=== PATIENT | male | born 1950 | race Caucasian/White ===

== ENCOUNTER 2020-03-15 08:45 | Outpatient (REF) | payer MEDICARE, SELFPAY | END 2020-03-15 08:46 | disposition home or self-care (01) | LOC: HO.CT 08:45 | PROVIDERS: PCP Internal Medicine; Visit Provider Surgery | DX: Z87.891 Personal history of nicotine dependence (principal) ==

== ENCOUNTER 2020-03-15 10:10 | Day surgery (SDC) | payer MEDICARE, SELFPAY ==
[2020-03-10 14:10] VITALS: BMI 23.6
[2020-03-15 10:05] VITALS: BP 150/91; PULSE 81; RESP 16; TEMP 36.1; O2SAT 97; BMI 23.6
[2020-03-15] MEDS: Lactated Ringers 1,000 ML 50 ML IVCONT (10:05)
[2020-03-15] MEDS: Sodium Phosphate,Mono-Dibasic 133 ML ENEMA PR (10:10)
--- NOTE | 2020-03-15 10:38 | MHC.SHP ---
Pre-Procedural Eval Section A The patient is an INPATIENT: No Changes since office visit: No Cold of Flu in the past 2 weeks, No New Medical Problems, No Changes in Medication and No Patient answered all questions The History & Physical has been completed within 30 days and I have reviewed it.: Yes Section B Chief Complaint: Screening Allergies: Allergies Allergy/AdvReac Type Severity Reaction Status Date / Time No Known Allergies Allergy Verified 03/15/20 09:57 [No Known Allergies*] Plan Patient has been examined and remains a candidate for the planned procedure
--- NOTE | 2020-03-15 10:42 | P.CONAN_ITS ---
[facility] Past Medical History Medical History Anxiety and depression Back pain COPD (chronic obstructive pulmonary disease) Elevated cholesterol History of hearing loss History of visual impairment HTN (hypertension) Neck pain Pulmonary nodule Smoker TIA (transient ischemic attack) Surgical History Surgical History H/O bilateral inguinal hernia repair History of cervical discectomy Hx of bilateral cataract extraction Hx of colonoscopy Social History Social History Alcohol intake: current Alcohol intake frequency: holidays/special occasions only Smoking Status: Current every day smoker Packs Per Day: 0.5 Cigarettes Per Day: 10.0 Years Smoked: 59 Smoked in Last 30 Days: Yes Patient Given Instructions on How to Stop Smoking: Yes Date Education Initiated: 03/10/20 Use of substances other than those prescribed or required for medical reasons: No Advance Directives: No Advance Directives Information Provided: No Advance Directives on File: No Meds Allergies Allergy/AdvReac Type Severity Reaction Status Date / Time No Known Allergies Allergy Verified 03/15/20 09:57 [No Known Allergies*] Home Medications Medication Instructions Recorded Confirmed Type amlodipine 1 tab PO DAILY 03/10/20 03/10/20 History aspirin [Aspir-81] 81 mg PO DAILY 03/10/20 03/10/20 History atorvastatin 1 tab PO BEDTIME 03/10/20 03/10/20 History omega-3 fatty acids [Fish Oil] 1,000 mg PO DAILY 03/10/20 03/10/20 History tiotropium bromide [Spiriva 2 puff PO DAILY 03/10/20 03/10/20 History Respimat] Exam Exam Date and Time: March 15, 2020 1042 Height,Weight and Vital Signs: Height 5 ft 8 in Weight 70.45 kg Last Vital Signs Temp 97 F 03/15/20 10:05 Pulse 81 03/15/20 10:05 Resp 16 03/15/20 10:05 BP 150/91 H 03/15/20 10:05 Pulse Ox 97 03/15/20 10:05 Airway Mallampati Class: II TM Dist: >3cm Neck ROM: Full Loose/Missing/Broken Teeth: No Heart: rrr+[id number] Lungs: cta b/l Assessment and Plan Assessment Anesthesia Assessment: Anesthesia Plan Discussed and Chart Reviewed Final Anesthetic Review NPO: Yes ASA Class: II Final Preanesthetic Review: No Changes in Pt Med Stat, Meds/Allgs Chart Reviewed, Consent Obtained/Reviewed and Anes Risks/Benef Reviewed Patient Risk: Low Procedure Risk: Low Assessment/Block/Sedation in SS: Assess/Block/Sedation-SS Anesthetic Plan Anesthetic Plan: MAC: Disposition: Standard PACU
[2020-03-15 11:10] VITALS: BP 108/68; PULSE 81; RESP 16; TEMP 36.2; O2SAT 95
--- NOTE | 2020-03-15 11:19 | PM.OP ---
Brief Operative Note Date of Service: 03/15/20 Pre-op diagnosis: screening Post-op diagnosis: same (colon polyp) Procedure: colonoscopy Surgeon: Daniel Dawson Anesthesia: MAC Estimated blood loss (mL): 0 Pathology: other (polyp 60 cm) Condition: stable Disposition: PACU
[2020-03-15 11:25] VITALS: BP 131/79; PULSE 86; RESP 18; TEMP 36.2; O2SAT 97
--- NOTE | 2020-03-15 11:30 | OP_ITS ---
SURGEON: Daniel Dawson MD INDICATIONS: Colon cancer screening and prior history of adenomatous colon polyps. PREOPERATIVE DIAGNOSIS: POSTOPERATIVE DIAGNOSIS: PROCEDURE PERFORMED: Colonoscopy to the cecum with snare polypectomy. ESTIMATED BLOOD LOSS: COMPLICATIONS: ANESTHESIA: ASSISTANTS: SPECIMENS: MEDICATIONS: Monitored anesthesia care. DESCRIPTION OF PROCEDURE: History and physical performed. The risks and benefits of the procedure were explained to the patient. Informed consent was obtained. The patient was placed in left lateral decubitus position. A digital rectal exam was performed and was found to be normal. The Olympus pediatric video colonoscope was introduced into the rectum and advanced to the cecum without difficulty. The cecum was identified by transillumination, palpation, and identification of ileocecal valve. Examination was performed and the scope was removed. He tolerated the procedure well and was taken to recovery area in stable condition. FINDINGS: The terminal ileum was not examined. There was a moderate amount of stool in the right colon and transverse colon. This was washed and suctioned as best possible. The cecum also had some stool and that was washed and suctioned. A single polyp at 60 cm measuring approximately 7 mm was removed with a snare and recovered via suction. No other polyps were identified. There was mild sigmoid diverticulosis. Retroflexed examination showed internal hemorrhoids. IMPRESSION: Colon polyp. RECOMMENDATION: Follow up the biopsy results. MD MONA Smith/LAURA / [id number]
--- NOTE | 2020-03-15 13:13 | HO.POSTANES ---
Post Anesthesia Evaluation Post Anesthesia Evaluation Vital Signs: Vital Signs Temp Pulse Resp BP Pulse Ox 03/15/20 11:25 97.1 F 86 18 131/79 97 03/15/20 11:10 97.1 F 81 16 108/68 95 03/15/20 10:05 97 F 81 16 150/91 H 97 Anesthesia: Monitored Mental Status: Awake Pain Control: Satisfactory Nausea/Vomiting: None Hydration: Adequate Anesthesia-Related Issues: No Anes. Related Issues
== END 2020-03-15 12:02 | disposition home or self-care (01) ==
PROVIDERS: PCP Internal Medicine; Visit Provider Internal Medicine Gastroenterology
PROC: 0DJD8ZZ Inspection of Lower Intestinal Tract, Via Natural or Artificial Opening Endoscopic (ICD-10-PCS; CPT 45378; principal; 2020-03-15 10:00)
DX: Z12.11 Encounter for screening for malignant neoplasm of colon (principal); Z86.010 Personal history of colon polyps; D12.4 Benign neoplasm of descending colon; K57.30 Diverticulosis of large intestine without perforation or abscess without bleeding; K64.8 Other hemorrhoids; J44.9 Chronic obstructive pulmonary disease, unspecified; I10 Essential (primary) hypertension; E78.00 Pure hypercholesterolemia, unspecified; Z86.73 Personal history of transient ischemic attack (TIA), and cerebral infarction without residual deficits; Z79.51 Long term (current) use of inhaled steroids; Z79.82 Long term (current) use of aspirin; Z79.899 Other long term (current) drug therapy; F17.210 Nicotine dependence, cigarettes, uncomplicated
CPT/HCPCS: 45385; 88305

== ENCOUNTER 2020-04-07 08:38 | Outpatient (REF) | payer MEDICARE, SELFPAY ==
--- NOTE | 2020-04-07 08:43 | CT_ITS ---
EXAMINATION: CT CHEST SCREENING CLINICAL INFORMATION: Nicotine dependence. COMPARISON: CT chest 03/27/2019. TECHNIQUE: Multidetector volumetric CT imaging of the chest is performed without contrast using low dose technique. Additional 2D coronal and sagittal reformatted images and axial 3D maximum intensity projection (MIP) images are generated on the CT workstation. This CT examination was performed using dose optimization techniques as appropriate, variously including the following: *Automated exposure control *Adjustment of mA and/or kV according to patient size (this includes techniques or standardized protocols for targeted exams where dose is matched to indication/reason for exam; i.e. extremities or head) *Use of iterative reconstruction technique DLP: 52 mGy-cm. FINDINGS: LUNGS: The lungs are hyperinflated and clear of acute pneumonic consolidation. There is a noncalcified 2 mm pulmonary nodule subpleural based left lower lobe axial image 42/4, pleural-based 4 mm density left lower lobe axial image 1 409/6, 2 mm calcified nodule right middle lobe adjacent to major fissure image 52/4, 2 mm calcified nodule left lower lobe posteriorly axial image 468/6. There are right apical small pulmonary cysts. MEDIASTINUM: The thyroid lobes are symmetrical and normal. The central trachea and the bronchi are widely patent. Heart size and the great vessels are normal caliber. No abnormal size mediastinal lymph nodes or mass seen. There are coronary artery calcified lesions present. No pericolic effusion seen. PLEURA: There is no pleural effusion. No pleural mass or thickening. AXILLA: No lymphadenopathy. UPPER ABDOMEN: Visualized liver, spleen, pancreas and bilateral adrenal glands are unremarkable. There are bilateral renal cysts seen. OSSEOUS STRUCTURES: No lytic or sclerotic process seen. There are degenerative disc changes lower dorsal spine. CT/CT lung screening IMPRESSION: Calcified and noncalcified pulmonary nodules are stable. No new pulmonary nodules seen. No abnormal mediastinal or axillary lymphadenopathy. Bilateral renal cysts. ASSESSMENT: Lung-RADS category 2: Benign. RECOMMENDATION: Low-dose annual CT chest.
== END 2020-04-07 08:39 | disposition home or self-care (01) ==
LOC: HO.CT 08:38
PROVIDERS: Visit Provider Surgery
DX: F17.210 Nicotine dependence, cigarettes, uncomplicated (principal); N28.1 Cyst of kidney, acquired
CPT/HCPCS: 71250

== ENCOUNTER 2020-07-04 06:03 | Outpatient (REF) | payer MEDICARE, SELFPAY ==
[2020-07-04 12:23] LABS: Prostate Specific Antigen 1.33 ng/mL (<0.05-4.0)
[2020-07-04 12:38] LABS: Alanine Aminotransferase 14 U/L (0-40); Anion Gap 12 (12-20); Aspartate Amino Transferase 18 U/L (5-37); Blood Urea Nitrogen 12 mg/dL (9-16); Calcium 8.6 mg/dL (8.4-10.2); Carbon Dioxide 29 mmol/L (22-29); Chloride 105 mmol/L (96-108); Cholesterol 138 mg/dL; Estimated Glomerular Filt Rate > 60; Glucose Fasting 84 mg/dL (60-99); HDL Cholesterol 35 mg/dL; LDL Cholesterol Calculated 85 mg/dl; Potassium 3.9 mmol/L (3.3-5.1); Sodium 142 mmol/L (135-145); Triglycerides 93 mg/dL
== END 2020-07-04 06:04 | disposition home or self-care (01) ==
LOC: HO.HMGCLDS 06:03
PROVIDERS: PCP Internal Medicine; Visit Provider Internal Medicine
DX: E78.5 Hyperlipidemia, unspecified (principal); I10 Essential (primary) hypertension; Z12.5 Encounter for screening for malignant neoplasm of prostate
CPT/HCPCS: 36415; 80048; 80061; 84153; 84450; 84460

== ENCOUNTER 2020-11-28 06:06 | Outpatient (REF) | payer MEDICARE, SELFPAY ==
[2020-11-28 13:27] LABS: Alanine Aminotransferase 13 U/L (0-40); Anion Gap 15 (12-20); Aspartate Amino Transferase 20 U/L (5-37); Blood Urea Nitrogen 11 mg/dL (9-16); Calcium 9.6 mg/dL (8.4-10.2); Carbon Dioxide 26 mmol/L (22-29); Chloride 106 mmol/L (96-108); Cholesterol 154 mg/dL; Estimated Glomerular Filt Rate > 60; Glucose Fasting 96 mg/dL (60-99); HDL Cholesterol 37 mg/dL; LDL Cholesterol Calculated 92 mg/dl; Potassium 4.2 mmol/L (3.3-5.1); Sodium 143 mmol/L (135-145); Triglycerides 128 mg/dL
== END 2020-11-28 06:07 | disposition home or self-care (01) ==
LOC: HO.HMGCLDS 06:06
PROVIDERS: PCP Internal Medicine; Visit Provider Internal Medicine
DX: I10 Essential (primary) hypertension (principal); E78.5 Hyperlipidemia, unspecified
CPT/HCPCS: 36415; 80048; 80061; 84450; 84460

== ENCOUNTER 2021-04-21 16:01 | Emergency (ER) | payer OTHER, SELFPAY ==
[2021-04-21 16:08] VITALS: BP 140/70; PULSE 100; RESP 16; TEMP 36.1; O2SAT 96; BMI 20.6
--- NOTE | 2021-04-21 16:48 | ED_ITS ---
HPI - Wound/Laceration General Chief Complaint: Wound/Laceration Stated Complaint: Rt hand laceration at work Time Seen by Provider: 04/21/21 16:25 Source: patient Mode of arrival: ambulatory Limitations: no limitations History of Present Illness HPI narrative: 7-0year-old male here with laceration to the right middle finger. Patient tells me at noon today he stuck his hand into a shopping cart and there was a broken beer bottle that cut his finger. He tells me he takes 81 mg of aspirin daily. He is here because he cannot get the bleeding to stop. Denies any numbness, tingling, weakness, fevers or chills Related Data Home Medications Medication Instructions Recorded Confirmed aspirin 81 mg tablet,delayed 81 mg PO DAILY 03/10/20 02/24/21 release omega-3 fatty acids 1,000 mg PO DAILY 03/10/20 02/24/21 Previous Rx's Medication Instructions Recorded amlodipine 2.5 mg tablet 2.5 mg PO DAILY #90 tab 03/15/20 tiotropium bromide 2.5 2 puff PO DAILY #12 ml 08/15/20 mcg/actuation mist for inhalation (Spiriva Respimat) nicotine 14 mg/24 hr daily 1 patch TRANSDERMAL DAILY #28 ea 01/23/21 transdermal patch atorvastatin 20 mg tablet 20 mg PO BEDTIME #90 tab 02/22/21 Allergies Allergy/AdvReac Type Severity Reaction Status Date / Time No Known Allergies Allergy Verified 02/24/21 10:32 [No Known Allergies*] Review of Systems Review of Systems: Yes all other systems are reviewed and are negative Constitutional: Constitutional: Reports no additional constitutional complaints, Denies body ache(s), Denies chills, Denies fever(s), Denies headache(s) and Denies weakness Eyes: Eyes: Reports no additional eye complaints and Denies change in vision ENT: Reports system reviewed and no additional complaints, except as documented, Denies dizziness, Denies headache(s), Denies nasal congestion, Denies nasal discharge and Denies neck pain Cardiovascular: Cardiovascular: Reports no additional cardiovascular complaints, Denies chest pain, Denies leg edema and Denies dyspnea Respiratory: Respiratory: Reports no additional respiratory complaints, Denies cough and Denies dyspnea Gastrointestinal: Gastrointestinal: Reports no additional gastrointestinal complaints, Denies abdominal pain, Denies diarrhea, Denies nausea and Denies vomiting Genitourinary: Genitourinary: Denies urinary incontinence Musculoskeletal: Musculoskeletal: Reports no additional musculoskeletal complaints, Denies back pain, Denies arthralgias, Denies joint swelling, Denies neck pain, Denies numbness and Denies tingling Integumentary/Breasts: Skin/Breast: Reports system reviewed and no additional complaints, except as docu and Denies rash Comments: Abrasion Neurologic: Reports system reviewed and no additional complaints, except as documented, Denies Abnormal speech present, Denies dizziness, Denies headache(s), Denies numbness, Denies tingling and Denies weakness PMFSH Past Medical History Attestation statement: The following information was validated with the patient. Source: old records reviewed and nursing notes reviewed Medical History Anxiety and depression Back pain Cigarette smoker motivated to quit COPD (chronic obstructive pulmonary disease) Dyslipidemia History of hearing loss History of visual impairment HTN (hypertension) Neck pain Pulmonary nodule Smoker TIA (transient ischemic attack) Surgical History H/O bilateral inguinal hernia repair History of cervical discectomy Hx of bilateral cataract extraction Hx of colonoscopy Social History Social History Housing: Apartment Alcohol intake: current Alcohol intake frequency: holidays/special occasions only Patient Tobacco Use Status: Current someday Tobacco user Cigarette Packs Per Day: 0 Cigarettes Per Day: 3 Years Smoked: 59 Advance Directives: No Advance Directives Information Provided: Yes Current occupational status: retired Physical Exam Vital Signs: Vital Signs: Last Vital Signs Temp 96.9 F 04/21/21 16:08 Pulse 100 04/21/21 16:08 Resp 16 04/21/21 16:08 BP 140/70 H 04/21/21 16:08 Pulse Ox 96 04/21/21 16:08 BMI result Body Mass Index 20.6 Const: General: cooperative, healthy appearing, comfortable and no acute distress Orientation/consciousness: patient oriented x3 Limitations: no limitations HENMT: Head: Yes normal to inspection Ears: hearing grossly normal bilaterally General nose exam: Normal external nose present Face and sinus: Yes normal facial exam Mouth: Normal oral and palatal mucosa present Throat: Yes posterior oropharynx normal Eyes: General: appearance normal, both eyes and all related structures Pupi ls: Equal, round and reactive pupils present Neck: Neck: Yes normal visual inspection Chest: Chest palpation & inspection: normal inspection of the chest Resp: Effort & Inspection: normal respiratory effort Auscultation: clear to auscultation bilaterally Cardio: Rate: regular rate Rhythm: regular rhythm Peripheral pulses: Peripheral pulses 2+ throughout GI: Inspection: Yes normal to inspection Palpation (GI): Soft to palpation and nontender Auscultation: normal bowel sounds Back/Spine/Pelvis: Thoracic/Lumbar Spine: thoracic and lumbar spine normal to inspection Skin: General skin exam: no rashes or lesions noted Neuro: General: patient oriented x3, no focal motor deficits and normal sensation to monofilament Cranial nerves: Yes Equal, round and reactive pupils present Cognition (Neuro): normal cognition Speech: No Abnormal speech present Gait exam (Neuro): Normal gait present Motor exam (neuro): 5/5 motor strength present throughout Extrem: Other: To the volar aspect of the distal right middle finger there is a skin avulsion with active bleeding. Full range of motion. Normal cap refill. Sensation intact General: Yes normal to inspection Course Course Course Narrative: 71-year-old male here with a skin avulsion to the right middle finger from a broken beer bottle since 12:00. Patient is unable to stop the bleeding which prompted his ER visit. On exam the patient does have active bleeding. This did not stop with direct pressure. Surgicel will be applied with a Alexander wrap and the patient will be monitored for a brief time. 1730-patient was monitored for 1 hour with no additional bleeding episodes. A bandage was placed. Reviewed worrisome signs and symptoms with the patient when to return to the emergency department. Comfortable discharge home. MDM - Wound/Laceration Medical Records Attestation: I reviewed the patient's medical records. Lab Data Attestation: I reviewed the patient's lab results. Discharge Plan Discharge Clinical Impression: Avulsion of skin Patient Disposition: Home, Self-Care Instructions: Skin Avulsion (ED) Additional Instructions: Leave the outer dressing in place till tomorrow then remove. Leave the inner dressing on until it falls off. Prescriptions: No Action amlodipine 2.5 mg tablet 2.5 mg PO DAILY Qty: 90 RF: 4 tiotropium bromide [Spiriva Respimat] 2.5 mcg/actuation mist 2 puff PO DAILY Qty: 12 RF: 3 atorvastatin 20 mg tablet 20 mg PO BEDTIME Qty: 90 RF: 2 aspirin 81 mg Tablet,Delayed Release (Dr/Ec) 81 mg PO DAILY RF: 0 Hold Instructions: Resume on 03/22/20. omega-3 fatty acids Capsule 1,000 mg PO DAILY RF: 0 nicotine 14 mg/24 hr patch 24 hour 1 patch transdermal DAILY Qty: 28 RF: 1 Referrals: Elida Genao MD [Primary Care Provider] - 2 days
== END 2021-04-21 18:16 | disposition home or self-care (01) ==
PROVIDERS: Emergency Provider Emergency Medicine; PCP Internal Medicine
DX: S61.212A Laceration without foreign body of right middle finger without damage to nail, initial encounter (principal); W25.XXXA Contact with sharp glass, initial encounter; Y93.89 Activity, other specified; Y92.512 Supermarket, store or market as the place of occurrence of the external cause; Y99.9 Unspecified external cause status
CPT/HCPCS: 99283; 99284

== ENCOUNTER 2021-07-07 06:02 | Outpatient (REF) | payer MEDICARE, OTHER, SELFPAY ==
[2021-07-07 12:34] LABS: Alanine Aminotransferase 16 U/L (0-40); Anion Gap 10 (12-20); Aspartate Amino Transferase 20 U/L (5-37); Blood Urea Nitrogen 16 mg/dL (9-16); Calcium 9.4 mg/dL (8.4-10.2); Carbon Dioxide 30 mmol/L (22-29); Chloride 106 mmol/L (96-108); Cholesterol 142 mg/dL; Estimated Glomerular Filt Rate > 60; Glucose Fasting 92 mg/dL (60-99); HDL Cholesterol 40 mg/dL; LDL Cholesterol Calculated 82 mg/dl; Potassium 4.2 mmol/L (3.3-5.1); Sodium 142 mmol/L (135-145); Triglycerides 101 mg/dL
== END 2021-07-07 06:03 | disposition home or self-care (01) ==
LOC: HO.HMGCLDS 06:02
PROVIDERS: Visit Provider Internal Medicine
DX: E78.5 Hyperlipidemia, unspecified (principal); I10 Essential (primary) hypertension
CPT/HCPCS: 36415; 80048; 80061; 82306; 84450; 84460

== ENCOUNTER 2022-02-05 06:00 | Outpatient (REF) | payer MEDICARE, SELFPAY ==
[2022-02-05 11:50] LABS: Alanine Aminotransferase 12 U/L (0-40); Anion Gap 16 (12-20); Aspartate Amino Transferase 22 U/L (5-37); Blood Urea Nitrogen 17 mg/dL (9-16); Calcium 9.3 mg/dL (8.4-10.2); Carbon Dioxide 26 mmol/L (22-29); Chloride 105 mmol/L (96-108); Cholesterol 140 mg/dL; Estimated Glomerular Filt Rate > 60; Glucose Fasting 94 mg/dL (60-99); HDL Cholesterol 39 mg/dL; LDL Cholesterol Calculated 78 mg/dl; Potassium 4.4 mmol/L (3.3-5.1); Sodium 143 mmol/L (135-145); Triglycerides 117 mg/dL
[2022-02-05 12:25] LABS: PSA,Total (Free>4and<10) 0.86 ng/mL (0.00-4.00)
== END 2022-02-05 06:01 | disposition home or self-care (01) ==
LOC: HO.HMGCLDS 06:00
PROVIDERS: PCP Internal Medicine; Visit Provider Internal Medicine
DX: E78.5 Hyperlipidemia, unspecified (principal); I10 Essential (primary) hypertension; Z12.5 Encounter for screening for malignant neoplasm of prostate
CPT/HCPCS: 36415; 80048; 80061; 84153; 84450; 84460

== ENCOUNTER 2022-03-14 11:04 | Emergency (ER) | payer OTHER, MEDICARE, SELFPAY ==
[2022-03-14 11:20] VITALS: BP 134/81; PULSE 102; RESP 18; TEMP 37.1; O2SAT 98; BMI 19.8
--- OUTSIDE RECORDS SUMMARY | 2022-03-14 11:51 | XMS_ITS ---
:1950 Author Organization [facility] Address [address] [place] [address] Care Team Providers Name Role Phone Daniel Dawson Jr Unavailable Unavailable PROBLEMS Type Condition ICD9-CM Code [id number] Code Onset Condition SNO MED Code Dates Status Problem Colon cancer Z12.11 Active 5422472 04 screening ALLERGIES No Known Allergies ENCOUNTERS Encounter Location Date Diagnosis [place] [address], [facility] [address] [id number] [facility] Outpatient [address] [place] [address] Feb, Encounter for s dylan [place] [id number] colonoscop y Z12.11 and Colon polyps K63 .[address] [place] [address] Feb, Lo ng term (current) use [facility] [address] of aspirin Z79.8 2 and [id number] Colon cancer scr eening Z12.11 [facility] Outpatient [address] [place] [address] Jan, [place] [id number] [place] [address] Sep, Lo ng term current use of [facility] [address] aspirin V58.66 [place] [address] cancer screening V76.[address] [place] [address] August, We ight loss 783.21 [facility] [address] [phone] [place] [address] August, He morrhoids 455.6 ; Colon [facility] [address] polyps 211.3 and Weight [address] loss 783.21 [facility] Outpatient [address] [place] [address] Apr, [place] [id number] [facility] ER [address] 28 Jan, 2009 [place] [id number] [facility] Outpatient [address] 10 May, 2005 [place] [id number] [facility] ER [address] Dec, [place] [id number] IMMUNIZATIONS Vaccine Route Administration Date Status Influenza Unknown Jan 20, 2020 Administered SOCIAL HISTORY Qualifiers Date Current Smoker REASON FOR REFERRAL FUNCTIONAL STATUS PLAN OF CARE Activity Details Follow Up prn Reason: Future/Pending Procedure COLONOSCOPY [id number] Future/Pending Procedure COLONOSCOPY [id number] VITAL SIGNS Weight 155 lbs 2020-03-07 Weight 144 lbs 2014-10-13 Weight 132 lbs 2012-08-27 Height 69.50 in 2020-03-07 Height 69.50 in 2014-10-13 Height 69.50 in 2012-08-27 BMI 22.56 kg/m2 2020-03-07 BMI 20.96 kg/m2 2014-10-13 BMI 19.21 kg/m2 2012-08-27 Temperature 97.3 degrees Fahrenheit 2020-03-07 Blood pressure systolic 000 mm Hg 2020-03-07 Blood pressure diastolic 00 mm Hg 2020-03-07 MEDICATIONS Medication Instructions Dosage Frequency Start End Duration Statu s Date Date amLODIPine Active Besylate 2.5 MG Fish Oil 1000 MG Orally Once a 1 capsule 24h Active day Ibuprofen Active Atorvastatin Active Calcium Spiriva Respimat Active MiraLax (colon orally begin at mixed with Feb, 1 day Active prep) 8.3 ounce 5:00 p.m. the Gatorade or 2020 ((238) grams day before the Crystal procedure Light Aspirin 81 MG Orally Once a 1 tablet 24h Act alonzo day PROCEDURES Procedure Date Ordered Result Body Site BP NOT ASSESS PATIENT NOT ELIGIBLE Mar 07, 2020 PT TOBACCO SCREEN RCVD TLK Mar 07, 2020 DOC MEDS VERIFIED W/PT OR RE Mar 07, 2020 COLORECTAL CA SCREEN DOC REV Mar 07, 2020 LESION REMOVAL COLONOSCOPY Mar 15, 2020 TEST FOR BLOOD, FECES September 16, 2012 RESULTS Name Result Date Reference Range GI BIOPSY 2015-02-09 G.I. BIOPSY Hemoccult Cards (Screening) Sample 1 neg Sample 2 neg Sample 3 neg REASON FOR VISIT pathology, screening, PATIENT PRESENTS TODAY FOR SCREENING COLON, screening colonoscopy, pre-colon, hemoccults, HEMORRHOIDS Insurance Providers [facility] Health Member Patient Patient Patient Patient Patient Subscriber Subscriber Subscriber Group Insurance Plan Plan Plan Plan ID Relationship Address Phone Name Date of ID Name Date of No Type Insurance Insurance Insurance Coverage to Subscriber Address Phone Name Dates [place] [address] [place] self [place] [id number] ATTN [place] 7 CLAIMS [facility] [id number] NETWORK [phone] NETWORK self ARIELLE [id number] [facility] [address] [address] [place]IV[place] [phone] OLIVIA self ARIELLE [id number] [facility] [id number] [facility] [place] [address] [facility] [address] Medicare [address] Medicare self ARIELLE [id number] of [place] [address] [facility] [address]
[2022-03-14 11:53] LABS: MANUAL DIFF FLAG NO
[2022-03-14 12:06] LABS: Basophils Absolute Auto 0.1 X10*3/uL (0.0-0.2); Basophils Percent Auto 0.7 % (0-2); Eosinophils Absolute Auto 0.2 X10*3/uL (0.0-0.4); Eosinophils Percent Auto 3.2 % (0-4); Hematocrit 44.2 % (42.0-52.0); Hemoglobin 14.9 g/dl (14.0-18.0); Imm Gran Abs Auto 0.02 X10*3/uL (0.00-0.03); Imm Gran Pct Auto 0.3 % (0.0-0.4); Lymphocytes Absolute Auto 2.4 X10*3/uL (1.2-4.9); Mean Corpuscular HGB Conc 33.7 g/dl (31.0-36.0); Mean Corpuscular Hemoglobin 30.5 pg (27.0-33.0); Mean Corpuscular Volume 90.4 fL (80.0-98.0); Monocytes Absolute Auto 0.6 X10*3/uL (0.1-1.2); Monocytes Percent Auto 8.5 % (2-11); Neutrophils Absolute Auto 4.1 x10*3/uL (2.0-8.3); Neutrophils Percent Auto 55.3 % (45-73); Platelet Count 246 X10*3/uL (160-400); Red Blood Count 4.89 X10*6/uL (4.60-5.80); Red Cell Distribution Width 13.4 % (11.0-16.0); White Blood Count 7.4 X10*3/uL (4.8-10.8)
[2022-03-14 12:12] LABS: Alanine Aminotransferase 16 U/L (0-40); Albumin Level 4.2 g/dL (3.5-5.0); Alkaline Phosphatase 69 U/L (39-117); Anion Gap 13 (12-20); Aspartate Amino Transferase 26 U/L (5-37); Bilirubin Direct 0.2 mg/dL (0.0-0.5); Bilirubin Total 0.6 mg/dL (0.0-1.0); Blood Urea Nitrogen 23 mg/dL (9-16); Calcium 9.4 mg/dL (8.4-10.2); Carbon Dioxide 27 mmol/L (22-29); Chloride 105 mmol/L (96-108); Creatinine Clr Calc Pharmacy 49.1; Estimated Glomerular Filt Rate > 60; Glucose Random 95 mg/dL (60-115); Potassium 4.4 mmol/L (3.3-5.1); Sodium 141 mmol/L (135-145); Total Protein 6.9 g/dL (6.5-8.0)
[2022-03-14 12:36] LABS: HBS Num1 2.37 mIU/mL (0-7.99); HBsAGNum1 0.16 S/CO (0.00-0.99); HIV AB/AG Nonreactive (Nonreactive); HIV Num 1 0.08 S/CO (0.00-0.99); Hepatitis A Antibody IgM 0.22 Index (0-0.79); Hepatitis B Core Antibody Nonreactive (Nonreactive); Hepatitis B Surface Antigen Negative (Negative); ~HepC Num1 0.22 S/CO (0.00-0.79); ~Hepatitis A Antibody IgM Nonreactive (Nonreactive); ~Hepatitis B Surface Antibody NONREACTIVE (Nonreactive); ~Hepatitis C Antibody Nonreactive (Nonreactive)
[2022-03-14 12:38] LABS: HBsAGNum1 0.18 S/CO (0.00-0.99); Hepatitis B Surface Antigen Negative (Negative)
[2022-03-14] MEDS: Diphth,Pertus(ACell),Tet Adult 0.5 ML SYRINGE IM (14:06)
[2022-03-14] MEDS: cephALEXin 500 MG CAPSULE PO (14:09)
[2022-03-14] MEDS: Post Exposure Medication Kit 1 KIT PO (14:12)
--- NOTE | 2022-03-14 14:20 | ED.WOUNDLAC ---
HPI - Wound/Laceration General Chief Complaint: General Medical Stated Complaint: stuck by needle Time Seen by Provider: 03/14/22 13:50 Source: patient Mode of arrival: ambulatory Limitations: no limitations History of Present Illness HPI narrative: 72yoM who works at [employer] presenting to the ED after he sustained a needle stick injury to the left index finger palmar aspect of his hand/finger from a book bag that he found in one of the carts. He reports he is unsure who's bag this was although he attempted to open the bag and accidentally stuck himself with a needle that was inside. He reports he washed it all immediately. He reports he is unsure if he is up-to-date on tetanus. He denies any other symptoms complaints or concerns at this time. Related Data Home Medications Medication Instructions Recorded Confirmed aspirin 81 mg tablet,delayed 81 mg PO DAILY 03/10/20 02/17/22 release omega-3 fatty acids 1,000 mg PO DAILY 03/10/20 02/17/22 Previous Rx's Medication Instructions Recorded amlodipine 2.5 mg tablet 2.5 mg PO DAILY #90 tabs 05/11/21 tiotropium bromide 2.5 2 puff PO DAILY #12 mL 10/15/21 mcg/actuation mist for inhalation (Spiriva Respimat) atorvastatin 20 mg tablet 20 mg PO BEDTIME #90 tabs 01/09/22 lidocaine 5 % topical patch 1 patch topical DAILY #15 ea 02/17/22 (Lidoderm) sildenafil 100 mg tablet 100 mg PO DAILY PRN sexual 02/27/22 activity #10 tabs cephalexin 500 mg capsule 500 mg PO Q6H 10 days #40 caps 03/14/22 Allergies Allergy/AdvReac Type Severity Reaction Status Date / Time No Known Allergies Allergy Verified 02/27/22 13:34 [No Known Allergies*] Review of Systems Review of Systems: Constitutional : No Weight loss, No Fever, No Chills, No Night Sweats, No Fatigue, No Malaise ENT/Mouth : No Hearing loss, No Ear Pain, No Nasal Congestion, No Sinus Pain, No Hoarseness, No sore throat, No Rhinorrhea, No Swallowing Difficulty Eyes: No Eye Pain, No Swelling, No Redness, No Foreign Body, No Discharge, No Vision Changes Cardiovascular : No Chest Pain, No SOB, No Dyspnea on Exertion, No Orthopnea, No Edema, No Palpitations Respiratory : No Cough, No Sputum, No Wheezing, No Smoke Exposure, No Dyspnea Gastrointestinal : No Nausea, No Vomiting, No Diarrhea, No Constipation, No abdominal Pain, No Hematochezia, No Melena Genitourinary : no irregular bleeding, No Dysuria, No Urinary Frequency, No Hematuria, No Urinary Incontinence, No Urgency, No Flank Pain, No Urinary Flow Changes, No Hesitancy Musculoskeletal : No joint pain, No Myalgias, No Joint Swelling Skin : + needlestick injury, No Skin Lesions, No rash Neuro : No Weakness, No Numbness, No Paresthesias, No Loss of Consciousness, No Dizziness, No Headache Psych : No Anxiety/Panic, No Depression, No SI/HI/AH/VH, No Social Issues, Heme/Lymph: No Bruising, No Bleeding,No Lymphadenopathy Endocrine : No Polyuria, No Polydipsia, No Temperature Intolerance Yes all other systems are reviewed and are negative PMFSH Past Medical History Attestation statement: The following information was validated with the patient. Source: old records reviewed and nursing notes reviewed Medical History Anxiety and depression Back pain Cigarette smoker motivated to quit COPD (chronic obstructive pulmonary disease) Cramps of left lower extremity Dyslipidemia Erectile dysfunction History of hearing loss History of visual impairment HTN (hypertension) Neck pain Pulmonary nodule Smoker TIA (transient ischemic attack) Surgical History H/O bilateral inguinal hernia repair History of cervical discectomy Hx of bilateral cataract extraction Hx of colonoscopy Social History Social History Housing: Apartment Alcohol intake: current Alcohol intake frequency: holidays/special occasions only Patient Tobacco Use Status: Current someday Tobacco user Cigarette Packs Per Day: 0 Cigarettes Per Day: 3 Years Smoked: 59 e-Cigarette/Vaping Use: Never Used Advance Directives: Yes Advance Directives Information Provided: No Advance Directives on File: No Current occupational status: retired Cognitive needs: No Hearing needs: Yes Vision needs: No Physical Exam Vital Signs: Vital Signs: Last Vital Signs Temp 98.7 F 03/14/22 11:20 Pulse 102 H 03/14/22 11:20 Resp 18 03/14/22 11:20 BP 134/81 03/14/22 11:20 Pulse Ox 98 03/14/22 11:20 O2 Del Method 03/14/22 11:20 BMI result Body Mass Index 19.8 vital signs have been reviewed as normal and appeared to be correct. Blood pressure normal Heart rate normal. Respiration rate normal. Temperature normal. Oxygen saturation normal. Appearance: Alert. Oriented X3. No acute distress. Head: Normal external exam. Normocephalic. Atraumatic. Eyes: PERRLA. EOMI. Conjunctiva and sclera normal. Eyelids normal. ENT: Pharynx normal. Uvula midline. Moist mucous membranes. Neck: Normal inspection. Neck supple. FROM. CVS: Normal heart rate and rhythm. Respiratory: No respiratory distress. Painless inspiration. Skin: Skin warm and dry. Normal skin color. Normal skin turgor. Patient noted to have puncture wound to left hand index finger at the mid aspect with mild soft tissue swelling and ecchymosis. No bony tenderness or obvious ligamentous or tendon injury noted. He has full range of motion of all finger in joints. No addition rashes/lesions/lacerations noted. Extremities: Extremities exhibit normal range of motion. Extremities nontender. Neuro: Oriented X 3. No motor deficit. No sensory deficit. Reflexes normal. Normal steady gait. No focal neuro deficits noted. Vascular: + radial pulses/+ 2 distal pedal pulses/+2 dorsalis pedis b/l. Normal cap refill. No cyanosis noted to upper extremity nails and lower extremity toes nails. Course Course Course Narrative: 72yoM who works at [employer] presenting to the ED after he sustained a needle stick injury to the left index finger palmar aspect of his hand/finger from a book bag that he found in one of the carts. He reports he is unsure who's bag this was although he attempted to open the bag and accidentally stuck himself with a needle that was inside. He reports he washed it all immediately. He reports he is unsure if he is up-to-date on tetanus. He denies any other symptoms complaints or concerns at this time. Will update the patient's tetanus. Start the patient on Keflex. Give the patient HIV prophylactic therapy as he requested. Labs reviewed and patient labs are all within normal limits. Patient negative for HIV and hepatitis. At this time patient will be discharged with instructions to follow up with work connection and to return if any new or worsening symptoms. Patient understands agrees with this plan. Medications Administered Discontinued Medications Generic Name Dose Route Start Last Admin Trade Name Raul PRN Reason Stop Dose Admin Cephalexin HCl 500 mg 03/14/22 13:57 03/14/22 14:09 Cephalexin 500 Mg Capsule PO 03/14/22 13:58 500 mg ONCE ONE Administration Diphtheria/Tetanus/Acell Pertussis 0.5 ml 03/14/22 13:57 03/14/22 14:06 Diphth,Pertus(Acell),Tet Adult 0.5 Ml Syringe IM 03/14/22 13:58 0.5 ml .ONCE ONE Administration Raltegravir/Emtricitabine/Tenofovir 1 kit 03/14/22 13:57 03/14/22 14:12 Post Exposure Medication Kit PO 03/14/22 13:58 1 kit ONCE ONE Administration MDM - Wound/Laceration Medical Records Attestation: I reviewed the patient's medical records. Lab Data Attestation: I reviewed the patient's lab results. Result diagrams: 03/14/22 11:34 03/14/22 11:34 Labs: Lab Results 03/14/22 03/14/22 03/14/22 Range/Units 11:34 11:34 11:34 WBC 7.4 (4.8-10.8) X10*3/uL RBC 4.89 (4.60-5.80) X10*6/uL Hgb 14.9 (14.0-18.0) g/dl Hct 44.2 (42.0-52.0) % MCV 90.4 (80.0-98.0) fL MCH 30.5 (27.0-33.0) pg MCHC 33.7 (31.0-36.0) g/dl RDW 13.4 (11.0-16.0) % Plt Count 246 (160-400) X10*3/uL MPV 9.0 L (9.4-12.4) fL Immature Gran % (Auto) 0.3 (0.0-0.4) % Neut % (Auto) 55.3 (45-73) % Lymph % (Auto) 32.0 (20-40) % Woodson % (Auto) 8.5 (2-11) % Eos % (Auto) 3.2 (0-4) % Baso % (Auto) 0.7 (0-2) % Lymph # (Auto) 2.4 (1.2-4.9) X10*3/uL Woodson # (Auto) 0.6 (0.1-1.2) X10*3/uL Eos # (Auto) 0.2 (0.0-0.4) X10*3/uL Baso # (Auto) 0.1 (0.0-0.2) X10*3/uL Abs Immat Gran (auto) 0.02 (0.00-0.03) X10*3/uL Absolute Neuts (auto) 4.1 (2.0-8.3) x10*3/uL Absolute Nucleated RBC 0.000 (0.0-0.012) X10*3/uL Nucleated RBC % (auto) 0.0 (0.0-0.2) /100WBC Sodium 141 (135-145) mmol/L Potassium 4.4 (3.3-5.1) mmol/L Chloride 105 (96-108) mmol/L Carbon Dioxide 27 (22-29) mmol/L Anion Gap 13 (12-20) BUN 23 H (9-16) mg/dL Creatinine 1.15 (0.5-1.4) mg/dL Estim Creat Clear Calc 49.1 Estimated GFR > 60 Random Glucose 95 (60-115) mg/dL Calcium 9.4 (8.4-10.2) mg/dL Total Bilirubin 0.6 (0.0-1.0) mg/dL Direct Bilirubin 0.2 (0.0-0.5) mg/dL AST 26 (5-37) U/L ALT 16 (0-40) U/L Alkaline Phosphatase 69 (39-117) U/L Total Protein 6.9 (6.5-8.0) g/dL Albumin 4.2 (3.5-5.0) g/dL Hepatitis A IgM Ab Nonreactive (Nonreactive) Hep Bs Antigen Negative (Negative) Hep Bs Antibody NONREACTIVE (Nonreactive) Hep B Core Total Ab Nonreactive (Nonreactive) Hepatitis C Ab (EIA) Nonreactive (Nonreactive) HIV 1&2 Ab/P24 Ag 4thGn Nonreactive (Nonreactive) 03/14/22 Range/Units 11:37 WBC (4.8-10.8) X10*3/uL RBC (4.60-5.80) X10*6/uL Hgb (14.0-18.0) g/dl Hct (42.0-52.0) % MCV (80.0-98.0) fL MCH (27.0-33.0) pg MCHC (31.0-36.0) g/dl RDW (11.0-16.0) % Plt Count (160-400) X10*3/uL MPV (9.4-12.4) fL Immature Gran % (Auto) (0.0-0.4) % Neut % (Auto) (45-73) % Lymph % (Auto) (20-40) % Woodson % (Auto) (2-11) % Eos % (Auto) (0-4) % Baso % (Auto) (0-2) % Lymph # (Auto) (1.2-4.9) X10*3/uL Woodson # (Auto) (0.1-1.2) X10*3/uL Eos # (Auto) (0.0-0.4) X10*3/uL Baso # (Auto) (0.0-0.2) X10*3/uL Abs Immat Gran (auto) (0.00-0.03) X10*3/uL Absolute Neuts (auto) (2.0-8.3) x10*3/uL Absolute Nucleated RBC (0.0-0.012) X10*3/uL Nucleated RBC % (auto) (0.0-0.2) /100WBC Sodium (135-145) mmol/L Potassium (3.3-5.1) mmol/L Chloride (96-108) mmol/L Carbon Dioxide (22-29) mmol/L Anion Gap (12-20) BUN (9-16) mg/dL Creatinine (0.5-1.4) mg/dL Estim Creat Clear Calc Estimated GFR Random Glucose (60-115) mg/dL Calcium (8.4-10.2) mg/dL Total Bilirubin (0.0-1.0) mg/dL Direct Bilirubin (0.0-0.5) mg/dL AST (5-37) U/L ALT (0-40) U/L Alkaline Phosphatase (39-117) U/L Total Protein (6.5-8.0) g/dL Albumin (3.5-5.0) g/dL Hepatitis A IgM Ab (Nonreactive) Hep Bs Antigen Negative (Negative) Hep Bs Antibody (Nonreactive) Hep B Core Total Ab (Nonreactive) Hepatitis C Ab (EIA) (Nonreactive) HIV 1&2 Ab/P24 Ag 4thGn (Nonreactive) Discharge Plan Discharge Clinical Impression: Needle stick injury, Work related injury, Tetanus-diphtheria (Td) vaccination Patient Disposition: Home, Self-Care Instructions: Diphtheria/Tetanus Vaccine (By injection), Needle Stick Injuries (ED), Return to Work Instructions (ED) Prescriptions: New cephalexin 500 mg capsule 500 mg PO Q6H 10 Days Qty: 40 0RF No Action amlodipine 2.5 mg tablet 2.5 mg PO DAILY Qty: 90 4RF Spiriva Respimat 2.5 mcg/actuation mist 2 puff PO DAILY Qty: 12 3RF atorvastatin 20 mg tablet 20 mg PO BEDTIME Qty: 90 1RF aspirin 81 mg Tablet,Delayed Release (Dr/Ec) 81 mg PO DAILY Hold Instructions: Resume on 03/22/20. omega-3 fatty acids Capsule 1,000 mg PO DAILY lidocaine [Lidoderm] 5 % adhesive patch,medicated 1 patch topical DAILY Qty: 15 0RF Rx Instructions: leave on most painful area for up to 12 hrs sildenafil 100 mg tablet 100 mg PO DAILY PRN (Reason: sexual activity) Qty: 10 4RF Rx Instructions: administer 30 minutes to 4 hours before activity Referrals: Elida Genao MD [Primary Care Provider] - (follow up pcp and work connection for your job call them today ) Stand Alone Forms: Work/School Release Interventions: ED Discharge Assessment Last Done: 03/14/22 14:19
== END 2022-03-14 14:22 | disposition home or self-care (01) ==
PROVIDERS: Emergency Provider Emergency Medicine; PCP Internal Medicine
DX: Z04.2 Encounter for examination and observation following work accident (principal); Z77.21 Contact with and (suspected) exposure to potentially hazardous body fluids; E78.5 Hyperlipidemia, unspecified; I10 Essential (primary) hypertension; F17.210 Nicotine dependence, cigarettes, uncomplicated; Z79.02 Long term (current) use of antithrombotics/antiplatelets; Z79.82 Long term (current) use of aspirin
CPT/HCPCS: 36415; 80048; 80076; 85025; 86704; 86706; 86709; 86803; 87340; 87389; 90471; 90715; 99283; 99284

== ENCOUNTER 2022-04-26 15:28 | Outpatient (REF) | payer OTHER, MEDICARE, SELFPAY ==
[2022-04-27 07:22] LABS: HBS Num1 0.58 mIU/mL (0-7.99); HBc Num1 0.09 S/CO (0.00-0.79); HBsAGNum1 0.37 S/CO (0.00-0.99); HIV AB/AG Nonreactive (Nonreactive); HIV Num 1 0.07 S/CO (0.00-0.99); Hepatitis B Core Antibody Nonreactive (Nonreactive); Hepatitis B Surface Antigen Negative (Negative); ~HepC Num1 0.11 S/CO (0.00-0.79); ~Hepatitis B Surface Antibody NONREACTIVE (Nonreactive); ~Hepatitis C Antibody Nonreactive (Nonreactive)
== END 2022-04-26 15:29 | disposition home or self-care (01) ==
LOC: HO.HMGCLDS 15:28
PROVIDERS: PCP Internal Medicine; Visit Provider Internal Medicine
DX: Z11.4 Encounter for screening for human immunodeficiency virus [HIV] (principal); Z77.21 Contact with and (suspected) exposure to potentially hazardous body fluids; W46.0XXA Contact with hypodermic needle, initial encounter
CPT/HCPCS: 36415; 86704; 86706; 86803; 87340; 87389

== ENCOUNTER 2022-08-20 15:11 | Outpatient (REF) | payer MEDICARE, SELFPAY ==
--- NOTE | ~2022-08-20 | CT_ITS ---
EXAMINATION: CT CHEST SCREENING CLINICAL INFORMATION: Nicotine dependence. One pack per day for 61 years. COMPARISON: CT chest 04/07/2020 and 03/27/2019. TECHNIQUE: Multidetector volumetric CT imaging of the chest is performed without contrast using low dose technique. Additional 2D coronal and sagittal reformatted images and axial 3D maximum intensity projection (MIP) images are generated on the CT workstation. This CT examination was performed using dose optimization techniques as appropriate, variously including the following: *Automated exposure control *Adjustment of mA and/or kV according to patient size (this includes techniques or standardized protocols for targeted exams where dose is matched to indication/reason for exam; i.e. extremities or head) *Use of iterative reconstruction technique DLP: 48 mGy-cm FINDINGS: LUNGS: There is centrilobular emphysema without acute pneumonic process. There are 2 mm calcified nodules/granulomas in left lower lobe, right middle lobe. There is a 5 mm pleural-based density lateral segment left lower lobe axial image 425/6, stable, 3 mm nodule left lower lobe axial image 42/4. MEDIASTINUM: Thyroid lobes are symmetric and normal. The central trachea and the bronchi are widely patent. Heart size and the great vessels are normal caliber. No abnormal size lymph nodes or mass. CORONARY ARTERY CALCIFICATION: Mild coronary artery calcifications are seen. PLEURA: No pleural effusion or pleural thickening. AXILLA: No lymphadenopathy. UPPER ABDOMEN: Visualized liver, spleen, pancreas and bilateral adrenal glands unremarkable. OSSEOUS STRUCTURES: No aggressive lytic or sclerotic process seen. CT/CT lung screening IMPRESSION: 1. Centrilobular emphysema without acute pneumonic process. 2. Stable bilateral calcified granulomas and pleural-based nodule left lower lobe. ASSESSMENT: Lung-RADS category 2. Benign. RECOMMENDATION: Low-dose annual CT chest.
== END 2022-08-20 15:12 | disposition home or self-care (01) ==
LOC: HO.CT 15:11
PROVIDERS: PCP Internal Medicine; Visit Provider Physician Assistant Medical
DX: Z12.2 Encounter for screening for malignant neoplasm of respiratory organs (principal); F17.210 Nicotine dependence, cigarettes, uncomplicated
CPT/HCPCS: 71271

== ENCOUNTER 2022-09-28 06:01 | Outpatient (REF) | payer MEDICARE, SELFPAY ==
[2022-09-28 12:39] LABS: Alanine Aminotransferase 12 U/L (0-40); Anion Gap 14 (12-20); Aspartate Amino Transferase 21 U/L (5-37); Blood Urea Nitrogen 20 mg/dL (9-16); Calcium 9.6 mg/dL (8.4-10.2); Carbon Dioxide 26 mmol/L (22-29); Chloride 105 mmol/L (96-108); Cholesterol 136 mg/dL; Estimated Glomerular Filt Rate > 60; Glucose Fasting 99 mg/dL (60-99); HDL Cholesterol 45 mg/dL; LDL Cholesterol Calculated 76 mg/dl; Potassium 4.4 mmol/L (3.3-5.1); Sodium 141 mmol/L (135-145); Triglycerides 76 mg/dL
== END 2022-09-28 06:02 | disposition home or self-care (01) ==
LOC: HO.HMGCLDS 06:01
PROVIDERS: PCP Internal Medicine; Visit Provider Internal Medicine
DX: I10 Essential (primary) hypertension (principal); J44.9 Chronic obstructive pulmonary disease, unspecified; R25.2 Cramp and spasm; E78.5 Hyperlipidemia, unspecified
CPT/HCPCS: 36415; 80048; 80061; 84450; 84460

== ENCOUNTER 2023-01-03 13:11 | Outpatient (AMB) | payer MEDICARE, SELFPAY ==
--- NOTE | 2023-01-03 13:14 | MHC.PC.OV ---
Vital Signs 01/03/23 13:18 Height 5 ft 8 in Weight 125 lb BMI 19.0 BP 124/72 Blood Pressure Location Lt brachial Position Sitting Pulse 79 Pulse Source Pulse Oximeter Pulse Oximetry (%) 93 Oxygen Delivery Method Room Air Intake Visit Reasons: dec follow up copd Intake Note: Pt is here today for his COPD Allergies No Known Allergies [No Known Allergies*] Allergy (Verified 01/28/23 03:48) Medication List - Last Reconciled 01/28/23 by Elida Genao MD amlodipine 2.5 mg PO DAILY aspirin 81 mg PO DAILY atorvastatin 20 mg PO BEDTIME omega-3 fatty acids 1,000 mg PO DAILY sildenafil 100 mg PO DAILY PRN tiotropium bromide 2.5 mcg/actuation (Spiriva Respimat) 2 puffs PO DAILY Tobacco use date assessed: 01/03/23 Fall risk assessment: No Falls in past year Last assessed Fall Risk: 01/03/23 Dental Screening Dental Screen Date: 01/03/23 Did you have a dental visit in the last 12 months?: No Did you have a dental problem in the last 6 months where you did not have access to dental care?: No Was dental information given to patient?: No HPI dec follow up copd HPI Details 73-year-old male with hypertension, hyperlipidemia, COPD, here today for follow-up. He denies any problems breathing, cough, currently smokes cigarettes, but has cut down now to just 3 a day. Has been feeling well, with no new complaints at present time, except for duty with maintaining erection during sexual intercourse. Requesting refill on his sildenafil. [facility] Medical History (Updated 01/28/23 @ 03:52 by Elida Genao MD) Smoker unmotivated to quit Tubular adenoma of colon Nicotine dependence, cigarettes, uncomplicated Cramps of left lower extremity Erectile dysfunction Dyslipidemia History of hearing loss History of visual impairment Pulmonary nodule Neck pain Back pain Anxiety and depression TIA (transient ischemic attack) COPD (chronic obstructive pulmonary disease) HTN (hypertension) Surgical History History of colonoscopy History of bilateral cataract extraction History of right inguinal hernia repair History of left inguinal hernia repair History of cervical discectomy Social History Housing: Apartment Alcohol intake: current Alcohol intake frequency: holidays/special occasions only Patient Tobacco Use Status: Current someday Tobacco user Cigarette Packs Per Day: 0 Cigarettes Per Day: 3 Years Smoked: 59 e-Cigarette/Vaping Use: Never Used service: No Current occupational status: retired Cognitive needs: No Hearing needs: Yes Vision needs: No Questionnaire PHQ-9 Over the last 2 weeks, how often have you been bothered by any of the following problems? 1. Little interest or pleasure in doing things: not at all 2. Feeling down, depressed, or hopeless: not at all 3. Trouble falling or staying asleep, or sleeping too much: not at all 4. Feeling tired or having little energy: not at all 5. Poor appetite or overeating: not at all 6. Feeling bad about yourself - or that you are a failure or have let yourself or your family down: not at all 7. Trouble concentrating on things, such as reading the newspaper or watching television: not at all 8. Moving or speaking so slowly that other people could have noticed. Or the opposite - being so fidgety or restless that you have been moving around a lot more than usual: not at all 9. Thoughts that you would be better off or of hurting yourself in some way: not at all Total score: 0 Depression Screening Interpretation: Negative 64776 - PHQ-9 Billing: Yes Source: Developed by Drs. Km Barrientos, Dori Kruger, Elpidio Corcoran and colleagues, with an educational nilo from [employer]. Thrive Questionnaire Date Thrive assessed: 01/03/23 I am a: Patient What is your living situation today?: I have a steady place to live Within the past 12 months, did the food you bought not last and you didn't have the money to get more?: Never true Within the past 12 months, did you worry whether your food would run out before you got money to buy more?: Never true Do you have trouble paying for medicines?: No Do you have trouble getting transportation to medical appointments?: No Do you have trouble paying your heating and electricity bill?: No Do you have trouble taking care of your child, family member or friend?: No Do you have trouble with day-to-day activities such as bathing, preparing meals, shopping, managing finances, etc.?: No Are you currently unemployed and looking for a job?: No Are you interested in more education?: No ERASMO-7 AMB Questionnaire ERASMO-7 Date ERASMO - 7 assessed: 01/03/23 Feeling nervous, anxious, or on edge: 0 = Not at all Not being able to stop or control worryin = Not at all Worrying too much about different things: 0 = Not at all Trouble relaxin = Not at all Being so restless that it is hard to sit still: 0 = Not at all Becoming easily annoyed or irritable: 0 = Not at all Feeling afraid as if something awful might happen: 0 = Not at all Total ERASMO-7 score (0-4 normal; 5-9 mild; 10-14 moderate; 15-21 severe): 0 Source: Developed by Drs. Km Barrientos, Dori Kruger, Elpidio Corcoran and colleagues, with an educational nilo from [employer]. ERASMO-7 Assessment Billing ERASMO-7 Assessment Tool: ERASMO-7 Assessment 72184 Review of Systems Const Denies body aches, Denies fever(s), Denies headache(s) and Denies weakness Eyes Denies change in vision ENT Denies dizziness, Denies headache(s), Denies nasal congestion, Denies nasal discharge and Denies sore throat Card Denies chest pain, Denies lightheadedness, Denies palpitations and Denies dyspnea Resp Denies chest congestion, Denies cough, Denies dyspnea and Denies wheezing GI Denies abdominal pain, Denies change in bowel habits and Denies heartburn Denies dysuria, Denies urinary frequency and Denies urinary urgency Musc Reports no additional complaints Skin/Breast Denies breast mass, Denies dry skin and Denies rash Neuro Denies dizziness, Denies headache(s) and Denies weakness Psych Reports as per HPI Endo Denies polydipsia, Denies polyuria and Denies palpitations Nikolas/Lymph Denies easy bruising Aller/Immun Denies seasonal rhinorrhea and Denies wheezing Physical exam (Primary Care) Vital Signs: Last Vital Signs Pulse 79 01/03/23 13:18 BP 124/72 01/03/23 13:18 Pulse Ox 93 01/03/23 13:18 Oxygen Delivery Method Room Air 01/03/23 13:18 BMI result Body Mass Index 19.0 Tobacco/Smoking Status: Tobacco use Status Tobacco use date assessed 01/03/23 01/03/23 13:15 Patient Tobacco Use Status Current someday Tobacco 01/03/23 13:15 e-Cigarette/Vaping Use Never Used 01/03/23 13:15 Are you ready to quit: No PHQ-9: PHQ-9 Score PHQ-9: Total score 0 01/03/23 14:02 Depression Screening Interpretation: Negative Thrive Assessment: Date of Thrive Assessment Date Thrive assessed 01/03/23 01/03/23 13:32 Const Other: Alert oriented x3, no acute distress noted, ambulatory with normal gait Eyes General: appearance normal, both eyes and all related structures Neck Neck: Yes full ROM, Yes no lymphadenopathy and Yes supple Resp Effort & Inspection: normal respiratory effort and able to speak in complete sentences Auscultation: clear to auscultation bilaterally Cardio Other: S1-S2 present regular rate and rhythm GI Palpation (GI): Soft to palpation and nontender Auscultation: normal bowel sounds Neuro General: gait normal, moves all extremities and no focal motor deficits Extrem General: Yes full ROM, Yes no joint enlargement, Yes no pedal edema and Yes normal gait Assessment and Plan Assessment & Plan (1) HTN (hypertension): Code(s): I10 - Essential (primary) hypertension Qualifiers: Hypertension type: primary hypertension Qualified Code(s): I10 - Essential (primary) hypertension Plan: Blood pressure at goal of less than 130/80. Continue with amlodipine 2.5 mg daily. Reinforced importance of following a low sodium diet, getting regular exercise, and lowering stress levels. ] (2) Dyslipidemia: Code(s): E78.5 - Hyperlipidemia, unspecified Plan: Continue with atorvastatin 20 mg at bedtime and stressed importance of following a low-cholesterol diet and regular exercise. (3) COPD (chronic obstructive pulmonary disease): Code(s): J44.9 - Chronic obstructive pulmonary disease, unspecified Plan: Patient unmotivated to quit smoking, will continue on Spiriva (4) Erectile dysfunction: Code(s): N52.9 - Male erectile dysfunction, unspecified Plan: Refill prescription sent for sildenafil 100 mg per tablet to take as directed. (5) Smoker unmotivated to quit: Code(s): F17.200 - Nicotine dependence, unspecified, uncomplicated Medications: Refilled sildenafil administer 30 minutes to 4 hours before activity 100 mg PO DAILY PRN 10 tabs 4RF sexual activity Coding Level of Care Code Est Pt Level 4 (66923) Diagnoses Primary hypertension I10 Hypertension type: primary hypertension Dyslipidemia E78.5 COPD (chronic obstructive pulmonary disease) J44.9 Erectile dysfunction N52.9 Smoker unmotivated to quit F17.200 Additional Codes ERASMO-7 Assessment Billing - ERASMO-7 Assessment Tool: ERASMO-7 Assessment [id number] ([id number])
[2023-01-03 13:18] VITALS: BP 124/72; PULSE 79; O2SAT 93; BMI 19.0
== END 2023-01-03 14:29 | disposition home or self-care (01) ==
PROVIDERS: Visit Provider Internal Medicine
DX: I10 Essential (primary) hypertension (principal); E78.5 Hyperlipidemia, unspecified; J44.9 Chronic obstructive pulmonary disease, unspecified; N52.9 Male erectile dysfunction, unspecified; F17.200 Nicotine dependence, unspecified, uncomplicated
CPT/HCPCS: 99214

== ENCOUNTER 2023-04-02 06:01 | Outpatient (REF) | payer MEDICARE, SELFPAY ==
[2023-04-02 11:14] LABS: Alanine Aminotransferase 11 U/L (0-40); Anion Gap 11 (12-20); Aspartate Amino Transferase 19 U/L (5-37); Blood Urea Nitrogen 18 mg/dL (9-16); Calcium 9.6 mg/dL (8.4-10.2); Carbon Dioxide 28 mmol/L (22-29); Chloride 107 mmol/L (96-108); Cholesterol 132 mg/dL (<200); Estimated Glomerular Filt Rate > 60; Glucose Fasting 90 mg/dL (60-99); HDL Cholesterol 40 mg/dL (>40); LDL Cholesterol Calculated 73 mg/dL (<100); Potassium 3.9 mmol/L (3.3-5.1); Sodium 142 mmol/L (135-145); Triglycerides 96 mg/dL (<150)
== END 2023-04-02 06:02 | disposition home or self-care (01) ==
LOC: HO.HMGCLDS 06:01
PROVIDERS: PCP Internal Medicine; Visit Provider Internal Medicine
DX: I10 Essential (primary) hypertension (principal); E78.5 Hyperlipidemia, unspecified
CPT/HCPCS: 36415; 80048; 80061; 84450; 84460

== ENCOUNTER 2023-04-04 14:08 | Outpatient (AMB) | payer MEDICARE, SELFPAY ==
--- NOTE | 2023-04-04 14:12 | A.OFFPC_ITS ---
Vital Signs 04/04/23 14:13 Height 5 ft 8 in Weight 125 lb 4 oz BMI 19.0 BP 126/60 Blood Pressure Location Rt brachial Position Sitting Pulse 93 Pulse Source Pulse Oximeter Pulse Oximetry (%) 99 Oxygen Delivery Method Room Air Intake Visit Reasons: follow up Intake Note: Patient is here today for a follow up Allergies No Known Allergies [No Known Allergies*] Allergy (Verified 04/04/23 14:53) Medication List - Last Reconciled 04/04/23 by Elida Genao MD amlodipine 2.5 mg PO DAILY aspirin 81 mg PO DAILY atorvastatin 20 mg PO BEDTIME omega-3 fatty acids 1,000 mg PO DAILY sildenafil 100 mg PO DAILY PRN tiotropium bromide 2.5 mcg/actuation (Spiriva Respimat) 2 puffs PO DAILY Tobacco use date assessed: 04/04/23 Fall risk assessment: No Falls in past year Last assessed Fall Risk: 04/04/23 Dental Screening Dental Screen Date: 04/04/23 Did you have a dental visit in the last 12 months?: No Did you have a dental problem in the last 6 months where you did not have access to dental care?: No Was dental information given to patient?: No PFSH Medical History Smoker unmotivated to quit Tubular adenoma of colon Nicotine dependence, cigarettes, uncomplicated Cramps of left lower extremity Erectile dysfunction Dyslipidemia History of hearing loss History of visual impairment Pulmonary nodule Neck pain Back pain Anxiety and depression TIA (transient ischemic attack) COPD (chronic obstructive pulmonary disease) HTN (hypertension) Surgical History History of colonoscopy History of bilateral cataract extraction History of right inguinal hernia repair History of left inguinal hernia repair History of cervical discectomy Social History Housing: Apartment Alcohol intake: current Alcohol intake frequency: holidays/special occasions only Patient Tobacco Use Status: Current someday Tobacco user Cigarette Packs Per Day: 0 Cigarettes Per Day: 3 Years Smoked: 59 e-Cigarette/Vaping Use: Never Used service: No Current occupational status: retired Cognitive needs: No Hearing needs: Yes Vision needs: No Questionnaire PHQ-9 Over the last 2 weeks, how often have you been bothered by any of the following problems? 1. Little interest or pleasure in doing things: not at all 2. Feeling down, depressed, or hopeless: not at all 3. Trouble falling or staying asleep, or sleeping too much: not at all 4. Feeling tired or having little energy: not at all 5. Poor appetite or overeating: not at all 6. Feeling bad about yourself - or that you are a failure or have let yourself or your family down: not at all 7. Trouble concentrating on things, such as reading the newspaper or watching television: not at all 8. Moving or speaking so slowly that other people could have noticed. Or the opposite - being so fidgety or restless that you have been moving around a lot more than usual: not at all 9. Thoughts that you would be better off or of hurting yourself in some way: not at all Total score: 0 Depression Screening Interpretation: Negative Depression Screening Done: Yes 13793 - PHQ-9 Billing: Yes Source: Developed by Drs. Km Barrientos, Elpidio Leal and colleagues, with an educational nilo from [employer]. Thrive Questionnaire Date Thrive assessed: 01/03/23 ERASMO-7 AMB Questionnaire ERASMO-7 Date ERASMO - 7 assessed: 01/03/23 Source: Developed by Drs. Km Barrientos, Elpidio Leal and colleagues, with an educational nilo from [employer]. Review of Systems Const Denies body aches, Denies fever(s), Denies headache(s) and Denies weakness Eyes Denies change in vision ENT Denies dizziness, Denies headache(s), Denies nasal congestion, Denies nasal discharge and Denies sore throat Card Denies chest pain, Denies lightheadedness, Denies palpitations and Denies dyspnea Resp Denies chest congestion, Denies cough, Denies dyspnea and Denies wheezing GI Denies abdominal pain, Denies change in bowel habits and Denies heartburn Denies dysuria, Denies urinary frequency and Denies urinary urgency Musc Reports no additional complaints Skin/Breast Denies rash Neuro Denies dizziness, Denies headache(s) and Denies weakness Endo Denies polydipsia, Denies polyuria and Denies palpitations Nikolas/Lymph Denies easy bruising Aller/Immun Denies seasonal rhinorrhea and Denies wheezing Physical exam (Primary Care) Vital Signs: Last Vital Signs Pulse 93 04/04/23 14:13 BP 126/60 04/04/23 14:13 Pulse Ox 99 04/04/23 14:13 Oxygen Delivery Method Room Air 04/04/23 14:13 BMI result Body Mass Index 19.0 Tobacco/Smoking Status: Tobacco use Status Tobacco use date assessed 04/04/23 04/04/23 14:15 Patient Tobacco Use Status Current someday Tobacco 04/04/23 14:15 e-Cigarette/Vaping Use Never Used 04/04/23 14:15 Are you ready to quit: No PHQ-9: PHQ-9 Score PHQ-9: Total score 0 04/04/23 15:12 Depression Screening Interpretation: Negative Thrive Assessment: Date of Thrive Assessment Date Thrive assessed 01/03/23 04/04/23 14:15 Const Other: Alert oriented x3, no acute distress noted, ambulatory with normal gait HENPR Head: Yes normocephalic Ears: external ears normal General nose exam: Normal external nose present Face and sinus: Yes face symmetric Mouth: Normal oral and palatal mucosa present, oropharynx normal and moist mucous membranes Eyes General: appearance normal, both eyes and all related structures Neck Neck: Yes full ROM, Yes no lymphadenopathy and Yes supple Resp Effort & Inspection: normal respiratory effort and able to speak in complete sentences Auscultation: clear to auscultation bilaterally Cardio Other: S1-S2 present regular rate and rhythm GI Palpation (GI): Soft to palpation and nontender Auscultation: normal bowel sounds Neuro General: gait normal, moves all extremities and no focal motor deficits Extrem General: Yes full ROM, Yes no joint enlargement, Yes no pedal edema and Yes normal gait Results Reviewed Results Reviewed: ENTERED: 04/02/23-610 AVTAR SHUKLA: ORDERED: Met Prof Fast, AST, ALT, Lipid Panel Test Result Flag Reference Site Sodium 142 135-145 mmol/L Potassium 3.9 3.3-5.1 mmol/L CL 107 96-108 mmol/L CO2 28 22-29 mmol/L Gap 11 L 12-20 BUN 18 H 9-16 mg/dL Creat 0.95 0.5-1.4 mg/dL EGFR > 60 NOTE: For -Cymro individuals, multiply the result by 1.210. Chronic Kidney Disease: Estimated GFR < 60 mL/min/1.73m2 Severe Kidney Disease: Estimated GFR < 15 mL/min/1.73m2 FBS 90 60-99 mg/dL CA 9.6 8.4-10.2 mg/dL AST (GOT) 19 5-37 U/L ALT (GPT) 11 0-40 U/L Triglyceride 96 <150 mg/dL Desirable Triglyceride: less than 150 mg/dL Borderline High Triglyceride 150-199 mg/dL High Triglyceride: 200-499 mg/dL Very High Triglyceride: greater than or equal to 5OO mg/dL Cholesterol 132 <200 mg/dL Desirable Cholesterol: less than 200 mg/dL Borderline High Cholesterol: 200-239 mg/dL High Cholesterol: greater than 239 mg/dL LDL Calculated 73 <100 mg/dL Desirable LDL: less than 100 mg/dL Near Optimal/Above Optimal LDL: 110-129 mg/dL Borderline High LDL: 130-159 mg/dL High LDL: 160-189 mg/dL Very High LDL: greater than or equal to 190 mg/dL HDL 40 L >40 mg/dL Desirable HDL: greater than 40 mg/dL Note: This HDL assay may give artificially low results in patients with liver disease. Assessment and Plan Assessment & Plan (1) Smoker unmotivated to quit: Code(s): F17.200 - Nicotine dependence, unspecified, uncomplicated Plan: Patient strongly advised to stop smoking, as smoking damages blood vessels, degenerative of joints and spine, damage to lungs and heart., predisposes to developing certain cancers like lung, breast, bladder, colon. Recommended to try decreasing cigarette use by 1-2 cigarettes a day. Advised to monitor what triggers are for smoking so that this can be discussed on the next office visit. We can discuss different options to quit smoking when ready. (2) HTN (hypertension): Code(s): I10 - Essential (primary) hypertension Qualifiers: Hypertension type: primary hypertension Qualified Code(s): I10 - Essential (primary) hypertension Plan: Blood pressure at goal of less than 130/80. Continue with current medication. Reinforced importance of following a low sodium diet, getting regular exercise, and lowering stress levels. (3) Dyslipidemia: Code(s): E78.5 - Hyperlipidemia, unspecified Plan: Fasting lipids are within normal limits, will continue on current dose of atorvastatin 20 mg daily, reinforced importance of following healthy eating habits and getting regular exercise. (4) COPD (chronic obstructive pulmonary disease): Code(s): J44.9 - Chronic obstructive pulmonary disease, unspecified Plan: Spiriva Respimat. Encouraged to quit smoking, patient not ready to quit at present. Up-to-date with his annual low-dose CT scan for lung cancer screening, done July 2022 with benign finding seen Orders: Orders Basic Metabolic Panel Fasting 08/28/23 F17.200 - Nicotine dependence, unspecified, uncomplicated, I10 - Essential (primary) hypertension, E78.5 - Hyperlipidemia, unspecified Lipid Panel 08/28/23 F17.200 - Nicotine dependence, unspecified, uncomplicated, I10 - Essential (primary) hypertension, E78.5 - Hyperlipidemia, unspecified Alanine Aminotransferase 08/28/23 F17.200 - Nicotine dependence, unspecified, uncomplicated, I10 - Essential (primary) hypertension, E78.5 - Hyperlipidemia, unspecified Aspartate Amino Transferase 08/28/23 F17.200 - Nicotine dependence, unspecified, uncomplicated, I10 - Essential (primary) hypertension, E78.5 - Hyperlipidemia, unspecified Coding Level of Care Code Est Pt Level 4 (44383) Diagnoses Smoker unmotivated to quit F17.200 Primary hypertension I10 Hypertension type: primary hypertension Dyslipidemia E78.5 COPD (chronic obstructive pulmonary disease) J44.9
[2023-04-04 14:13] VITALS: BP 126/60; PULSE 93; O2SAT 99; BMI 19.0
== END 2023-04-04 15:01 | disposition home or self-care (01) ==
PROVIDERS: PCP Internal Medicine; Visit Provider Internal Medicine
DX: F17.200 Nicotine dependence, unspecified, uncomplicated (principal); I10 Essential (primary) hypertension; E78.5 Hyperlipidemia, unspecified; J44.9 Chronic obstructive pulmonary disease, unspecified
CPT/HCPCS: 99214

== ENCOUNTER 2023-08-16 06:04 | Outpatient (REF) | payer MEDICARE, SELFPAY ==
[2023-08-16 11:55] LABS: Alanine Aminotransferase 15 U/L (0-40); Anion Gap 11 (12-20); Aspartate Amino Transferase 21 U/L (5-37); Blood Urea Nitrogen 13 mg/dL (9-16); Calcium 9.2 mg/dL (8.4-10.2); Carbon Dioxide 28 mmol/L (22-29); Chloride 107 mmol/L (96-108); Cholesterol 123 mg/dL (<200); Estimated Glomerular Filt Rate > 60; Glucose Fasting 93 mg/dL (60-99); HDL Cholesterol 42 mg/dL (>40); LDL Cholesterol Calculated 65 mg/dL (<100); Sodium 142 mmol/L (135-145); Triglycerides 83 mg/dL (<150)
== END 2023-08-16 06:05 | disposition home or self-care (01) ==
LOC: HO.HMGCLDS 06:04
PROVIDERS: PCP Internal Medicine; Visit Provider Internal Medicine
DX: I10 Essential (primary) hypertension (principal); E78.5 Hyperlipidemia, unspecified; F17.200 Nicotine dependence, unspecified, uncomplicated
CPT/HCPCS: 36415; 80048; 80061; 84450; 84460

== ENCOUNTER 2023-08-23 13:59 | Outpatient (REF) | payer MEDICARE, SELFPAY ==
--- NOTE | ~2023-08-23 | CT_ITS ---
EXAMINATION: CT CHEST SCREENING CLINICAL INFORMATION: Nicotine dependence, cigarettes, uncomplicated. The patient is a current smoker with a 62 pack-year history of smoking. COMPARISON: CT chest 08/20/2022. Renal ultrasound 04/07/2019. TECHNIQUE: Multidetector volumetric CT imaging of the chest is performed on a Siemens SOMATOM Definition scanner without contrast using low dose technique. Additional 2D coronal and sagittal reformatted images and axial 3D maximum intensity projection (MIP) images are generated on the CT workstation. This CT examination was performed using dose optimization techniques as appropriate, variously including the following: *Automated exposure control *Adjustment of mA and/or kV according to patient size (this includes techniques or standardized protocols for targeted exams where dose is matched to indication/reason for exam; i.e. extremities or head) *Use of iterative reconstruction technique DLP: 45 mGy-cm FINDINGS: LUNGS: Mild emphysematous changes are present along with bronchial thickening. Some benign-appearing pulmonary nodular densities are unchanged, the largest being some perifissural lilian tissue in the right middle lobe along the minor fissure (5:296 and 8:86). The largest discrete pulmonary nodule measures 3 mm in the left lower lobe and is unchanged (5:303, compare prior 5:343). No new, increasing sized or worrisome nodules are seen. MEDIASTINUM: The mediastinum is normal. CORONARY ARTERY CALCIFICATION: Marked. PLEURA: There is no pleural effusion. No pleural mass or thickening. AXILLA: No lymphadenopathy. UPPER ABDOMEN: Bilateral benign partially visualized Bosniak class I renal cysts are noted which require no additional imaging or follow-up. No solid renal masses are seen. OSSEOUS STRUCTURES: Unremarkable. CT/CT lung screening IMPRESSION: No findings concerning for malignancy. ASSESSMENT: Lung-RADS category 2: Benign RECOMMENDATION: Routine annual low-dose CT screening in 12 months.
== END 2023-08-23 14:00 | disposition home or self-care (01) ==
LOC: HO.CT 13:59
PROVIDERS: PCP Internal Medicine; Visit Provider Nurse Practitioner Family
DX: Z12.2 Encounter for screening for malignant neoplasm of respiratory organs (principal); F17.210 Nicotine dependence, cigarettes, uncomplicated
CPT/HCPCS: 71271

== ENCOUNTER 2023-09-05 14:08 | Outpatient (AMB) | payer MEDICARE, SELFPAY ==
[2023-09-05 14:23] VITALS: BP 126/70; PULSE 85; O2SAT 94; BMI 18.9
--- NOTE | 2023-09-05 14:23 | A.OFFPC_ITS ---
Vital Signs 09/05/23 14:23 Height 5 ft 8 in Weight 124 lb 6 oz BMI 18.9 BP 126/70 Blood Pressure Location Lt brachial Position Sitting Pulse 85 Pulse Source Pulse Oximeter Pulse Oximetry (%) 94 Oxygen Delivery Method Room Air Intake Visit Reasons: 5 month fu Allergies No Known Allergies [No Known Allergies*] Allergy (Verified 03/09/24 13:13) Medication List - Last Reconciled 09/05/23 by Elida Genao MD amlodipine 2.5 mg PO DAILY aspirin 81 mg PO DAILY atorvastatin 20 mg PO BEDTIME omega-3 fatty acids 1,000 mg PO DAILY sildenafil 100 mg PO DAILY PRN tiotropium bromide 2.5 mcg/actuation (Spiriva Respimat) 2 puffs PO DAILY Tobacco use date assessed: 09/05/23 Fall risk assessment: No Falls in past year Last assessed Fall Risk: 09/05/23 Dental Screening Dental Screen Date: 09/05/23 Did you have a dental visit in the last 12 months?: No Did you have a dental problem in the last 6 months where you did not have access to dental care?: No Was dental information given to patient?: No HPI 5 month fu HPI Details 74 year-old male with hypertension, hype rlipidemia, COPD, here today for follow- up. Has been feeling well, compliant with taking his medications, he had recent fasting labs done which showed normal electrolytes, fasting glucose and lipid levels. Continues to smoke cigarettes unfortunately, with no desire to quit at present time. He however has cut back down to just 5 cigarettes a day. [facility] Medical History (Updated 03/10/24 @ 02:27 by Elida Genao MD) Former cigarette smoker Smoker unmotivated to quit Tubular adenoma of colon Nicotine dependence, cigarettes, uncomplicated Cramps of left lower extremity Erectile dysfunction Dyslipidemia History of hearing loss History of visual impairment Pulmonary nodule Neck pain Back pain Anxiety and depression TIA (transient ischemic attack) COPD (chronic obstructive pulmonary disease) HTN (hypertension) Surgical History History of colonoscopy History of bilateral cataract extraction History of right inguinal hernia repair History of left inguinal hernia repair History of cervical discectomy Social History Housing: Apartment Alcohol intake: current Alcohol intake frequency: holidays/special occasions only Patient Tobacco Use Status: Former Tobacco user Cigarette Packs Per Day: 0 Cigarettes Per Day: 5 Years Smoked: 59 e-Cigarette/Vaping Use: Never Used service: No Current occupational status: retired Cognitive needs: No Hearing needs: Yes Vision needs: No Questionnaire Thrive Questionnaire Date Thrive assessed: 01/03/23 THRIVE Score: 0 AUDIT C Alcohol Use Questionnaire (AUDIT-C) 1. How often do you have a drink containing alcohol?: 2-3 times a week 2. How many drinks containing alcohol do you have on a typical day when you are drinking?: 1 or 2 3. How often do you have six or more drinks on one occasion?: Never Total Score: 3 Score Reviewed/Action Taken: Yes ERASMO-7 AMB Questionnaire ERASMO-7 Date ERASMO - 7 assessed: 01/03/23 Source: Developed by Drs. Km Barrientos, Dori Kruger, Elpidio Corcoran and colleagues, with an educational nilo from [employer]. Review of Systems Const Denies body aches, Denies fever(s), Denies headache(s) and Denies weakness Eyes Denies change in vision ENT Reports as per HPI, Denies dizziness, Denies headache(s) and Denies sore throat Card Denies chest pain, Denies lightheadedness, Denies palpitations and Denies dyspnea Resp Reports as per HPI and Denies dyspnea GI Denies abdominal pain, Denies change in bowel habits and Denies heartburn Denies dysuria, Denies urinary frequency and Denies urinary urgency Musc Reports no additional complaints Skin/Breast Denies rash Neuro Denies dizziness, Denies headache(s) and Denies weakness Endo Denies polydipsia, Denies polyuria and Denies palpitations Nikolas/Lymph Denies easy bruising Aller/Immun Denies seasonal rhinorrhea Physical exam (Primary Care) Vital Signs: Last Vital Signs Pulse 85 09/05/23 14:23 BP 126/70 09/05/23 14:23 Pulse Ox 94 09/05/23 14:23 Oxygen Delivery Method Room Air 09/05/23 14:23 BMI result Body Mass Index 18.9 Tobacco/Smoking Status: Tobacco use Status Tobacco use date assessed 09/05/23 09/05/23 14:28 Patient Tobacco Use Status Current someday Tobacco 09/05/23 14:28 e-Cigarette/Vaping Use Never Used 09/05/23 14:28 Thrive Assessment: Date of Thrive Assessment Date Thrive assessed 01/03/23 09/05/23 14:28 Const Other: Alert oriented x3, no acute distress noted, ambulatory with normal gait [facility] Head: Yes normocephalic Ears: external ears normal General nose exam: Normal external nose present Face and sinus: Yes face symmetric Mouth: Normal oral and palatal mucosa present, oropharynx normal and moist mucous membranes Eyes General: appearance normal, both eyes and all related structures Neck Neck: Yes full ROM, Yes no lymphadenopathy and Yes supple Resp Effort & Inspection: normal respiratory effort and able to speak in complete sentences Auscultation: diminished lung sounds Cardio Other: S1-S2 present regular rate and rhythm GI Palpation (GI): Soft to palpation and nontender Auscultation: normal bowel sounds Neuro General: gait normal, moves all extremities and no focal motor deficits Extrem General: Yes full ROM, Yes no joint enlargement, Yes no pedal edema and Yes normal gait Results Reviewed Results Reviewed: evelio: Elpidio Howard Age/Sex: 73/M : 1950 Unit#: [id number] Attend Dr: Elida Genao MD Re08/16/23 Status: DEP REF Location: [facility] Disch: SPEC : [id number] VINCE: 08/16/23 STATUS: COMP REQ : [id number] RECD: 08/16/23-[address]: Elida Genao MD COMP: 08/16/235 ENTERED: 08/16/[address] [facility] DR: ORDERED: Met Prof Fast, AST, ALT, Lipid Panel Test Result Flag Reference Sodium 142 135-145 mmol/L Potassium 4.0 3.3-5.1 mmol/L CL 107 96-108 mmol/L CO2 28 22-29 mmol/L Gap 11 L 12-20 BUN 13 9-16 mg/dL Creat 0.95 0.5-1.4 mg/dL EGFR > 60 NOTE: For -[place] individuals, multiply the result by 1.210. Chronic Kidney Disease: Estimated GFR < 60 mL/min/1.73m2 Severe Kidney Disease: Estimated GFR < 15 mL/min/1.73m2 FBS 93 60-99 mg/dL CA 9.2 8.4-10.2 mg/dL AST (GOT) 21 5-37 U/L ALT (GPT) 15 0-40 U/L Triglyceride 83 <150 mg/dL Desirable Triglyceride: less than 150 mg/dL Borderline High Triglyceride 150-199 mg/dL High Triglyceride: 200-499 mg/dL Very High Triglyceride: greater than or equal to 5OO mg/dL Cholesterol 123 <200 mg/dL Desirable Cholesterol: less than 200 mg/dL Borderline High Cholesterol: 200-239 mg/dL High Cholesterol: greater than 239 mg/dL LDL Calculated 65 <100 mg/dL Desirable LDL: less than 100 mg/dL Near Optimal/Above Optimal LDL: 110-129 mg/dL Borderline High LDL: 130-159 mg/dL High LDL: 160-189 mg/dL Very High LDL: greater than or equal to 190 mg/dL HDL 42 >40 mg/dL Desirable HDL: greater than 40 mg/dL Note: This HDL assay may give artificially low results in patients with liver disease. Coding Level of Care Code Est Pt Level 4 (32365) Complex EM visit Add On G2211 Diagnoses Primary hypertension I10 Hypertension type: primary hypertension COPD (chronic obstructive pulmonary disease) J44.9 Dyslipidemia E78.5 Nicotine dependence, cigarettes, uncomplicated F17.210
== END 2023-09-05 15:14 | disposition home or self-care (01) ==
PROVIDERS: PCP Internal Medicine; Visit Provider Internal Medicine
DX: I10 Essential (primary) hypertension (principal); J44.9 Chronic obstructive pulmonary disease, unspecified; E78.5 Hyperlipidemia, unspecified; F17.210 Nicotine dependence, cigarettes, uncomplicated
CPT/HCPCS: 99499

== ENCOUNTER 2023-11-25 13:55 | Outpatient (AMB) | payer MEDICARE, SELFPAY ==
--- NOTE | 2023-11-25 14:53 | AM.OFFWIN_ITS ---
Intake Vital Signs 11/25/23 14:54 Height 5 ft 8 in Weight 122 lb BMI 18.5 BP 114/72 Blood Pressure Location Rt brachial Position Sitting Pulse 88 Pulse Source Pulse Oximeter Temp 98.2 F Temp Source Oral Pulse Oximetry (%) 96 Oxygen Delivery Method Room Air Intake Visit Reasons: left ear blocked, unable to hear Intake Note: pt here c/ LT ear blockage, unable to hear Patient Tobacco Use Status: Current someday Tobacco user Allergies No Known Allergies [No Known Allergies*] Allergy (Verified 11/25/23 14:53) Do you need a note to return to daycare/school/sports/work: No HPI HPI Comments History of Present Illness Details Patient to the walk-in today for sick visit Complaining of cerumen impaction to the left ear. Reports noticed difficulty hearing out of the year 3 days ago, went to the store and bought cerumen removal drops which he instilled on Saturday. Since then he has been with significantly impaired hearing out of the left ear. 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 [facility] Medical History Smoker unmotivated to quit Tubular adenoma of colon Nicotine dependence, cigarettes, uncomplicated Cramps of left lower extremity Erectile dysfunction Dyslipidemia History of hearing loss History of visual impairment Pulmonary nodule Neck pain Back pain Anxiety and depression TIA (transient ischemic attack) COPD (chronic obstructive pulmonary disease) HTN (hypertension) Surgical History History of colonoscopy History of bilateral cataract extraction History of right inguinal hernia repair History of left inguinal hernia repair History of cervical discectomy Social History Housing: Apartment Alcohol intake: current Alcohol intake frequency: holidays/special occasions only Patient Tobacco Use Status: Current someday Tobacco user Cigarette Packs Per Day: 0 Cigarettes Per Day: 5 Years Smoked: 59 e-Cigarette/Vaping Use: Never Used service: No Current occupational status: retired Cognitive needs: No Hearing needs: Yes Vision needs: No Review of Systems Const All systems reviewed & are unremarkable except as noted in HPI and below Physical Exam Vital Signs: Last Vital Signs Temp 98.2 F 11/25/23 14:54 Pulse 88 11/25/23 14:54 BP 114/72 11/25/23 14:54 Pulse Ox 96 11/25/23 14:54 Oxygen Delivery Method Room Air 11/25/23 14:54 BMI result Body Mass Index 18.5 General: awake, alert, oriented. Answers questions appropriately. Fully engaged in examination. Skin: warm, dry, intact HEENT: Normocephalic. Bilateral cerumen impaction Cardiac: External chest normal in appearance. Respiratory: No cough, audible wheezing or stridor. Abdomen: without gross distension. MS: No obvious swelling or deformities. Neurological: Oriented to person, place, time and situation. Thought process intact. Psychiatric: Appropriate mood and affect. Good judgment and insight. Office Procedures Cerumen Removal From which ear canal was the cerumen removed: bilateral Removal: irrigation Notes: patient tolerated procedure well [id number] Irrigation/Lavage Assessment & Plan Assessment & Plan (1) Bilateral impacted cerumen: Code(s): H61.23 - Impacted cerumen, bilateral Plan Cerumen removal via irrigation. Patient tolerated well. Visual inspection postprocedure without signs of infection bilaterally. Follow up with PCP or return here for any new or worsening symptoms Orders: Orders AMB Cerumen Removal Today H61.23 - Impacted cerumen, bilateral Coding Level of Care Code Est Pt Level 3 (65592) Diagnoses Bilateral impacted cerumen H61.23 CPT Codes Office Procedure - CPT: 28326-Egk Irrigation/Lavage ([id number])
[2023-11-25 14:54] VITALS: BP 114/72; PULSE 88; TEMP 36.8; O2SAT 96; BMI 18.5
== END 2023-11-25 15:32 | disposition home or self-care (01) ==
PROVIDERS: PCP Internal Medicine; Visit Provider Registered Nurse Emergency
DX: H61.23 Impacted cerumen, bilateral (principal)
CPT/HCPCS: 69209; 99213

== ENCOUNTER 2024-03-02 06:02 | Outpatient (REF) | payer MEDICARE, SELFPAY ==
[2024-03-02 11:23] LABS: PSA,Total (Free>4and<10) 1.13 ng/mL (0.00-4.00)
[2024-03-02 11:27] LABS: Alanine Aminotransferase 15 U/L (0-40); Albumin Level 4.2 g/dL (3.5-5.0); Alkaline Phosphatase 80 U/L (39-117); Anion Gap 13 (12-20); Aspartate Amino Transferase 31 U/L (5-37); Bilirubin Total 0.7 mg/dL (0.0-1.0); Blood Urea Nitrogen 14 mg/dL (9-16); Calcium 9.9 mg/dL (8.4-10.2); Carbon Dioxide 28 mmol/L (22-29); Chloride 104 mmol/L (96-108); Cholesterol 141 mg/dL (<200); Estimated Glomerular Filt Rate > 60; Glucose Fasting 102 mg/dL (60-99); HDL Cholesterol 45 mg/dL (>40); LDL Cholesterol Calculated 75 mg/dL (<100); Potassium 4.1 mmol/L (3.3-5.1); Sodium 141 mmol/L (135-145); Total Protein 7.6 g/dL (6.5-8.0); Triglycerides 108 mg/dL (<150)
[2024-03-02 11:35] LABS: Vitamin D 25-OH Total 49.1 ng/mL (>30)
== END 2024-03-02 06:03 | disposition home or self-care (01) ==
LOC: HO.HMGCLDS 06:02
PROVIDERS: PCP Internal Medicine; Visit Provider Internal Medicine
DX: I10 Essential (primary) hypertension (principal); E78.5 Hyperlipidemia, unspecified; J44.9 Chronic obstructive pulmonary disease, unspecified; F17.210 Nicotine dependence, cigarettes, uncomplicated; Z12.5 Encounter for screening for malignant neoplasm of prostate
CPT/HCPCS: 36415; 80053; 80061; 82306; 84153

== ENCOUNTER 2024-03-09 12:45 | Outpatient (AMB) | payer MEDICARE, SELFPAY ==
[2024-03-09 12:49] VITALS: BP 126/60; PULSE 90; O2SAT 94; BMI 18.5
--- NOTE | 2024-03-09 12:49 | A.OFFPC_ITS ---
Vital Signs 03/09/24 12:49 Height 5 ft 8 in Weight 122 lb BMI 18.5 BP 126/60 Blood Pressure Location Lt brachial Position Sitting Pulse 90 Pulse Source Pulse Oximeter Pulse Oximetry (%) 94 Oxygen Delivery Method Room Air Intake Visit Reasons: 6 month follow up Intake Note: Pt is e here today for his 6 mo. f/u Allergies No Known Allergies [No Known Allergies*] Allergy (Verified 03/09/24 13:13) Medication List - Last Reconciled 03/09/24 by Elida Genao MD amlodipine 2.5 mg PO DAILY aspirin 81 mg PO DAILY atorvastatin 20 mg PO BEDTIME omega-3 fatty acids 1,000 mg PO DAILY sildenafil 100 mg PO DAILY PRN tiotropium bromide 2.5 mcg/actuation (Spiriva Respimat) 2 puffs PO DAILY Tobacco use date assessed: 03/09/24 Fall risk assessment: No Falls in past year Last assessed Fall Risk: 03/09/24 Dental Screening Dental Screen Date: 03/09/24 Did you have a dental visit in the last 12 months?: No Did you have a dental problem in the last 6 months where you did not have access to dental care?: No Was dental information given to patient?: Patient declined HPI 6 month follow up 2 HPI Details 74 year-old male with hypertension, hype rlipidemia, COPD, here today for follow-up. Has been compliant with taking his medications. Just came back recently from [place] , and now complains of nasal congestion, with chest congestion accompanied by intermittent episodes of wheezing and cough. This has been present now for the last week, not improving with hupd-oax-svneghu cough medications or using his Spiriva inhaler. He states that he has not smoked while he was in [place], picked up another cigarette when he came back but only for a couple of days and now has stopped smoking again. Has been a week since he smoked denies any withdrawal symptoms. [facility] Medical History (Updated 03/10/24 @ 02:27 by Elida Genao MD) Former cigarette smoker Smoker unmotivated to quit Tubular adenoma of colon Nicotine dependence, cigarettes, uncomplicated Cramps of left lower extremity Erectile dysfunction Dyslipidemia History of hearing loss History of visual impairment Pulmonary nodule Neck pain Back pain Anxiety and depression TIA (transient ischemic attack) COPD (chronic obstructive pulmonary disease) HTN (hypertension) Surgical History History of colonoscopy History of bilateral cataract extraction History of right inguinal hernia repair History of left inguinal hernia repair History of cervical discectomy Social History Housing: Apartment Alcohol intake: current Alcohol intake frequency: holidays/special occasions only Patient Tobacco Use Status: Former Tobacco user Cigarette Packs Per Day: 0 Cigarettes Per Day: 5 Years Smoked: 59 e-Cigarette/Vaping Use: Never Used service: No Current occupational status: retired Cognitive needs: No Hearing needs: Yes Vision needs: No Questionnaire PHQ-9 Over the last 2 weeks, how often have you been bothered by any of the following problems? 1. Little interest or pleasure in doing things: not at all 2. Feeling down, depressed, or hopeless: not at all 3. Trouble falling or staying asleep, or sleeping too much: not at all 4. Feeling tired or having little energy: several days 5. Poor appetite or overeating: not at all 6. Feeling bad about yourself - or that you are a failure or have let yourself or your family down: not at all 7. Trouble concentrating on things, such as reading the newspaper or watching television: not at all 8. Moving or speaking so slowly that other people could have noticed. Or the opposite - being so fidgety or restless that you have been moving around a lot more than usual: not at all 9. Thoughts that you would be better off or of hurting yourself in some way: not at all Total score: 1 Source: Developed by Drs. Km Barrientos, Dori Kruger, Elpidio Corcoran and colleagues, with an educational nilo from [employer]. Thrive Questionnaire Date Thrive assessed: 03/03/24 I am a: Patient What is your living situation today?: I have a steady place to live Within the past 12 months, did the food you bought not last and you didn't have the money to get more?: Never true Within the past 12 months, did you worry whether your food would run out before you got money to buy more?: Never true Do you have trouble paying for medicines?: No Do you have trouble getting transportation to medical appointments?: No Do you have trouble paying your heating and electricity bill?: No Do you have trouble taking care of your child, family member or friend?: No Do you have trouble with day-to-day activities such as bathing, preparing meals, shopping, managing finances, etc.?: No Are you currently unemployed and looking for a job?: No Are you interested in more education?: No Please select the resources that you would like help with: None Currently or been in a relationship where the following occur: No concerns reported THRIVE Score: 0 AUDIT C Alcohol Use Questionnaire (AUDIT-C) 1. How often do you have a drink containing alcohol?: Monthly or less 2. How many drinks containing alcohol do you have on a typical day when you are drinking?: 1 or 2 3. How often do you have six or more drinks on one occasion?: Never Total Score: 1 ERASMO-7 AMB Questionnaire ERASMO-7 Date ERASMO - 7 assessed: 01/03/23 Feeling nervous, anxious, or on edge: 0 = Not at all Not being able to stop or control worryin = Not at all Worrying too much about different things: 0 = Not at all Trouble relaxin = Not at all Being so restless that it is hard to sit still: 0 = Not at all Becoming easily annoyed or irritable: 0 = Not at all Feeling afraid as if something awful might happen: 0 = Not at all Total ERASMO-7 score (0-4 normal; 5-9 mild; 10-14 moderate; 15-21 severe): 0 Source: Developed by Drs. Km Barrientos, Dori Kruger, Elpidio Corcoran and colleagues, with an educational nilo from [employer]. Review of Systems Const Denies body aches, Denies fever(s), Denies headache(s) and Denies weakness Eyes Denies change in vision ENT Reports as per HPI, Denies dizziness, Denies headache(s) and Denies sore throat Card Denies chest pain, Denies lightheadedness, Denies palpitations and Denies dyspnea Resp Reports as per HPI and Denies dyspnea GI Denies abdominal pain, Denies change in bowel habits and Denies heartburn Denies dysuria, Denies urinary frequency and Denies urinary urgency Musc Reports no additional complaints Skin/Breast Denies rash Neuro Denies dizziness, Denies headache(s) and Denies weakness Endo Denies polydipsia, Denies polyuria and Denies palpitations Nikolas/Lymph Denies easy bruising Aller/Immun Denies seasonal rhinorrhea Physical exam (Primary Care) Vital Signs: Last Vital Signs Pulse 90 03/09/24 12:49 BP 126/60 03/09/24 12:49 Pulse Ox 94 03/09/24 12:49 Oxygen Delivery Method Room Air 03/09/24 12:49 BMI result Body Mass Index 18.5 Tobacco/Smoking Status: Tobacco use Status Tobacco use date assessed 03/09/24 03/09/24 12:54 Patient Tobacco Use Status Former Tobacco user 03/09/24 12:55 e-Cigarette/Vaping Use Never Used 03/09/24 12:54 PHQ-9: PHQ-9 Score PHQ-9: Total score 1 03/09/24 13:27 Thrive Assessment: Date of Thrive Assessment Date Thrive assessed 03/03/24 03/09/24 12:54 Currently or been in a relationship where the following occur: No concerns reported Const Other: Alert oriented x3, no acute distress noted, ambulatory with normal gait HENMT Head: Yes normocephalic Ears: external ears normal General nose exam: Normal external nose present Face and sinus: Yes face symmetric Mouth: Normal oral and palatal mucosa present, oropharynx normal and moist mucous membranes Eyes General: appearance normal, both eyes and all related structures Neck Neck: Yes full ROM, Yes no lymphadenopathy and Yes supple Resp Effort & Inspection: normal respiratory effort and able to speak in complete sentences Auscultation: wheezes (Occasional inspiratory wheezing) and diminished lung sounds Cardio Other: S1-S2 present regular rate and rhythm GI Palpation (GI): Soft to palpation and nontender Auscultation: normal bowel sounds Neuro General: gait normal, moves all extremities and no focal motor deficits Extrem General: Yes full ROM, Yes no joint enlargement, Yes no pedal edema and Yes normal gait Results Reviewed Results Reviewed: Name: Elpidio Howard Age/Sex: 74/M : 1950 Unit#: [id number] Attend Dr: Elida Genao MD Re03/02/24 Status: DEP REF Location: [facility] Disch: SPEC : [id number] VINCE: 03/02/24 STATUS: COMP REQ : [id number] RECD: 03/02/[address]: Elida Genao MD COMP: 03/02/24 ENTERED: 03/02/[address] [facility] [address]: ORDERED: CMP Fast, Lipid Panel, Vitamin D 25-OH Test Result Flag Reference Sodium 141 135-145 mmol/L Potassium 4.1 3.3-5.1 mmol/L CL 104 96-108 mmol/L CO2 28 22-29 mmol/L Gap 13 12-20 BUN 14 9-16 mg/dL Creat 1.04 0.5-1.4 mg/dL EGFR > 60 NOTE: For -[place] individuals, multiply the result by 1.210. Chronic Kidney Disease: Estimated GFR < 60 mL/min/1.73m2 Severe Kidney Disease: Estimated GFR < 15 mL/min/1.73m2 FBS 102 H 60-99 mg/dL A fasting glucose from 100-125 mg/dl is considered impaired (pre-diabetes). CA 9.9 # 8.4-10.2 mg/dL Total Bili 0.7 0.0-1.0 mg/dL AST (GOT) 31 5-37 U/L Slight Hemolysis.Interpret result with caution. ALT (GPT) 15 0-40 U/L Protein, Total 7.6 6.5-8.0 g/dL Alb 4.2 3.5-5.0 g/dL Triglyceride 108 <150 mg/dL Desirable Triglyceride: less than 150 mg/dL Borderline High Triglyceride 150-199 mg/dL High Triglyceride: 200-499 mg/dL Very High Triglyceride: greater than or equal to 5OO mg/dL Cholesterol 141 <200 mg/dL Desirable Cholesterol: less than 200 mg/dL Borderline High Cholesterol: 200-239 mg/dL High Cholesterol: greater than 239 mg/dL LDL Calculated 75 <100 mg/dL Desirable LDL: less than 100 mg/dL Near Optimal/Above Optimal LDL: 110-129 mg/dL Borderline High LDL: 130-159 mg/dL High LDL: 160-189 mg/dL Very High LDL: greater than or equal to 190 mg/dL HDL 45 >40 mg/dL Desirable HDL: greater than 40 mg/dL Note: This HDL assay may give artificially low results in patients with liver disease. Alk Phos 80 39-117 U/L Vit D 25-OH Tot 49.1 >30 ng/mL Health Based Reference Values* < 20 ng/mL Deficient 20-30 ng/mL Insufficient > 30 ng/mL Sufficient Coding Level of Care Code Est Pt Level 4 (54427) Complex EM visit Add On G2211 Diagnoses Primary hypertension I10 Hypertension type: primary hypertension COPD (chronic obstructive pulmonary disease) J44.9 Dyslipidemia E78.5 Acute bronchitis, unspecified organism J20.9 Bronchitis organism: unspecified organism Assessment & Plan Assessment & Plan (1) HTN (hypertension): Code(s): I10 - Essential (primary) hypertension Category: Medical Qualifiers: Hypertension type: primary hypertension Qualified Code(s): I10 - Essential (primary) hypertension Plan: Blood pressure stable and controlled on present treatment, continued on amlodipine V mg daily (2) COPD (chronic obstructive pulmonary disease): Code(s): J44.9 - Chronic obstructive pulmonary disease, unspecified Category: Medical Plan: Discontinued Spiriva and started on Breztri areas fear 160-9-8.4 mcg per actuation, 2 inhalations twice a day, advised to gargle mouth after each use. Congratulated on quitting smoking. (3) Dyslipidemia: Code(s): E78.5 - Hyperlipidemia, unspecified Category: Medical Plan: Reviewed recent fasting lipid profile with patient with levels within normal limits . Continue atorvastatin 20 mg at night , in addition to adherence to low-cholesterol diet and regular exercise, at least 30 minutes 3 to 4 times a week. Advised patient to make healthy food choices, eat more fruits, vegetables, whole grains, wild caught fish and low-fat dairy. Limit amount of meat and fried or fatty food products, as well as processed foods and fast foods. Follow-up scheduled with repeat fasting lipid panel in 3 months. (4) Acute bronchitis: Code(s): J20.9 - Acute bronchitis, unspecified Qualifiers: Bronchitis organism: unspecified organism Qualified Code(s): J20.9 - Acute bronchitis, unspecified Plan: Prescription sent for azithromycin, to take as directed. Orders: Orders Aspartate Amino Transferase 05/30/24 E78.5 - Hyperlipidemia, unspecified, I10 - Essential (primary) hypertension Basic Metabolic Panel Fasting 05/30/24 E78.5 - Hyperlipidemia, unspecified, I10 - Essential (primary) hypertension Lipid Panel 05/30/24 E78.5 - Hyperlipidemia, unspecified, I10 - Essential (primary) hypertension Alanine Aminotransferase 05/30/24 E78.5 - Hyperlipidemia, unspecified, I10 - Essential (primary) hypertension Medications: New Breztri Aerosphere 160-9-4.8 mcg/actuation (nzcyodmgts-nhjsbwra-mnmmblkbik) 2 inhalations inhalation BID 10.7 grams 2RF NS J44.9 - Chronic obstructive pulmonary disease, unspecified azithromycin For 250 mg dose pack: take 500 mg today (day 1), then 250 mg for 4 days (days 2-5) PO 6 tabs 0RF Discontinued tiotropium bromide 2.5 mcg/actuation (Spiriva Respimat) Discontinued Reason: Doctor's Order 2 puffs PO DAILY 12 mL 1RF
== END 2024-03-09 13:31 | disposition home or self-care (01) ==
PROVIDERS: PCP Internal Medicine; Visit Provider Internal Medicine
DX: I10 Essential (primary) hypertension (principal); J44.9 Chronic obstructive pulmonary disease, unspecified; E78.5 Hyperlipidemia, unspecified; J20.9 Acute bronchitis, unspecified

== ENCOUNTER → 2024-03-09 12:45 | Outpatient (BNVA) | payer MEDICARE, SELFPAY | PROVIDERS: PCP Internal Medicine; Visit Provider Internal Medicine | DX: I10 Essential (primary) hypertension (principal); J44.9 Chronic obstructive pulmonary disease, unspecified; E78.5 Hyperlipidemia, unspecified; J20.9 Acute bronchitis, unspecified | CPT/HCPCS: 96127; 99212 ==

== ENCOUNTER 2024-05-19 06:01 | Outpatient (REF) | payer MEDICARE, SELFPAY ==
[2024-05-19 11:22] LABS: Alanine Aminotransferase 23 U/L (0-40); Anion Gap 11 (12-20); Aspartate Amino Transferase 39 U/L (5-37); Blood Urea Nitrogen 20 mg/dL (9-16); Calcium 8.9 mg/dL (8.4-10.2); Carbon Dioxide 29 mmol/L (22-29); Chloride 105 mmol/L (96-108); Cholesterol 134 mg/dL (<200); Estimated Glomerular Filt Rate > 60; Glucose Fasting 87 mg/dL (60-99); HDL Cholesterol 42 mg/dL (>40); LDL Cholesterol Calculated 75 mg/dL (<100); Potassium 4.5 mmol/L (3.3-5.1); Sodium 140 mmol/L (135-145); Triglycerides 87 mg/dL (<150)
== END 2024-05-19 06:02 | disposition home or self-care (01) ==
LOC: HO.HMGCLDS 06:01
PROVIDERS: PCP Internal Medicine; Visit Provider Internal Medicine
DX: I10 Essential (primary) hypertension (principal); E78.5 Hyperlipidemia, unspecified
CPT/HCPCS: 36415; 80048; 80061; 84450; 84460

== ENCOUNTER 2024-06-25 15:47 | Outpatient (AMB) | payer MEDICARE, SELFPAY ==
--- NOTE | 2024-06-25 16:15 | A.OFFPC_ITS ---
Vital Signs 06/25/24 16:17 Height 5 ft 8 in Weight 122 lb BMI 18.5 BP 130/80 Blood Pressure Location Rt brachial Position Sitting Respiration 17 Pulse 84 Pulse Source Pulse Oximeter Temp 98.1 F Temp Source Oral Pulse Oximetry (%) 94 Oxygen Delivery Method Room Air Intake Visit Reasons: 3 months follow up Intake Note: Pt is here today for his 3mo. f/u Allergies No Known Allergies [No Known Allergies*] Allergy (Verified 06/25/24 16:30) Medication List - Last Reconciled 06/25/24 by Elida Genao MD amlodipine 2.5 mg PO DAILY aspirin 81 mg PO DAILY atorvastatin 20 mg PO BEDTIME omega-3 fatty acids 1,000 mg PO DAILY tiotropium bromide 2.5 mcg/actuation (Spiriva Respimat) inhalation DAILY Tobacco use date assessed: 06/25/24 Fall risk assessment: No Falls in past year Last assessed Fall Risk: 06/25/24 Dental Screening Dental Screen Date: 06/25/24 Did you have a dental visit in the last 12 months?: No Did you have a dental problem in the last 6 months where you did not have access to dental care?: No Was dental information given to patient?: No HPI 3 months follow up HPI Details 74 year-old male with hypertension, hype rlipidemia, COPD, here today for follow-up. He has been taking amlodipine 2.5 mg daily for hypertension with blood pressure stable and controlled on present treatment currently taking atorvastatin 20 mg daily, as well as [place] 3 fatty acid supplements with fasting lipids within normal limits Continues to smoke cigarettes, but is now down to 2 cigarettes every other day. Patient very frustrated as he is unable to quit completely. Has tried patches but it gave him a rash, Chantix gave him nightmares. He also has tried Nicorette gum which does not help. He is scheduled for low-dose CT scan for lung cancer screening next month. Patient states he stopped using Breztri as he was getting chest tightness and now has switched back again to Spiriva, which has been helping control his episodes of bronchospasm and cough. He is due for his colon cancer screening, has history of adenomatous polyp removed on his last colonoscopy in 2019. [facility] Medical History Nicotine dependence, cigarettes, uncomplicated Tubular adenoma of colon Cramps of left lower extremity Erectile dysfunction Dyslipidemia History of hearing loss History of visual impairment Pulmonary nodule Neck pain Back pain Anxiety and depression TIA (transient ischemic attack) COPD (chronic obstructive pulmonary disease) HTN (hypertension) Surgical History History of colonoscopy History of bilateral cataract extraction History of right inguinal hernia repair History of left inguinal hernia repair History of cervical discectomy Social History Housing: Apartment Alcohol intake: current Alcohol intake frequency: holidays/special occasions only Patient Tobacco Use Status: Current someday Tobacco user Cigarette Packs Per Day: 0 Cigarettes Per Day: 5 Years Smoked: 59 e-Cigarette/Vaping Use: Never Used service: No Current occupational status: retired Cognitive needs: No Hearing needs: Yes Vision needs: No Questionnaire PHQ-9 Over the last 2 weeks, how often have you been bothered by any of the following problems? 1. Little interest or pleasure in doing things: not at all 2. Feeling down, depressed, or hopeless: not at all 3. Trouble falling or staying asleep, or sleeping too much: not at all 4. Feeling tired or having little energy: several days 5. Poor appetite or overeating: not at all 6. Feeling bad about yourself - or that you are a failure or have let yourself or your family down: not at all 7. Trouble concentrating on things, such as reading the newspaper or watching television: not at all 8. Moving or speaking so slowly that other people could have noticed. Or the opposite - being so fidgety or restless that you have been moving around a lot more than usual: not at all 9. Thoughts that you would be better off or of hurting yourself in some way: not at all Total score: 1 Depression Screening Interpretation: Negative Depression Screening Done: Yes 60739 - PHQ-9 Billing: Yes Source: Developed by Drs. Km Barrientos, Dori Kruger, Elpidio Corcoran and colleagues, with an educational nilo from [employer] Thrive Questionnaire Date Thrive assessed: 06/25/24 I am a: Patient What is your living situation today?: I have a steady place to live Within the past 12 months, did the food you bought not last and you didn't have the money to get more?: Never true Within the past 12 months, did you worry whether your food would run out before you got money to buy more?: Never true Do you have trouble paying for medicines?: No Do you have trouble getting transportation to medical appointments?: No Do you have trouble paying your heating and electricity bill?: No Do you have trouble taking care of your child, family member or friend?: No Do you have trouble with day-to-day activities such as bathing, preparing meals, shopping, managing finances, etc.?: No Are you currently unemployed and looking for a job?: No Are you interested in more education?: No Please select the resources that you would like help with: None Currently or been in a relationship where the following occur: No concerns reported THRIVE Score: 0 AUDIT C Alcohol Use Questionnaire (AUDIT-C) 1. How often do you have a drink containing alcohol?: Monthly or less 2. How many drinks containing alcohol do you have on a typical day when you are drinking?: 1 or 2 3. How often do you have six or more drinks on one occasion?: Never Total Score: 1 ERASMO-7 AMB Questionnaire ERASMO-7 Date ERASMO - 7 assessed: 06/25/24 Feeling nervous, anxious, or on edge: 0 = Not at all Not being able to stop or control worryin = Not at all Worrying too much about different things: 0 = Not at all Trouble relaxin = Not at all Being so restless that it is hard to sit still: 0 = Not at all Becoming easily annoyed or irritable: 0 = Not at all Feeling afraid as if something awful might happen: 0 = Not at all Total ERASMO-7 score (0-4 normal; 5-9 mild; 10-14 moderate; 15-21 severe): 0 Source: Developed by Drs. Km Barrientos, Dori Kruger, Eplidio Corcoran and colleagues, with an educational nilo from [employer] ERASMO-7 Assessment Billing ERASMO-7 Assessment Tool: ERASMO-7 Assessment 42158 Review of Systems Const Denies body aches, Denies fever(s), Denies headache(s) and Denies weakness ENT Denies dizziness, Denies headache(s) and Denies sore throat Card Denies chest pain, Denies lightheadedness, Denies palpitations and Denies dyspnea Resp Reports cough (Dry cough occasional) and Denies dyspnea GI Denies abdominal pain, Denies change in bowel habits and Denies heartburn Denies dysuria, Denies urinary frequency and Denies urinary urgency Musc Reports no additional complaints Skin/Breast Denies rash Neuro Denies dizziness, Denies headache(s) and Denies weakness Psych Reports no additional complaints Endo Denies polydipsia, Denies polyuria and Denies palpitations Nikolas/Lymph Denies easy bruising Aller/Immun Denies seasonal rhinorrhea Physical exam (Primary Care) Vital Signs: Last Vital Signs Temp 98.1 F 06/25/24 16:17 Pulse 84 06/25/24 16:17 Resp 17 06/25/24 16:17 BP 130/80 06/25/24 16:17 Pulse Ox 94 06/25/24 16:17 Oxygen Delivery Method Room Air 06/25/24 16:17 BMI result Body Mass Index 18.5 Tobacco/Smoking Status: Tobacco use Status Tobacco use date assessed 06/25/24 06/25/24 16:21 Patient Tobacco Use Status Current someday Tobacco 06/25/24 16:21 e-Cigarette/Vaping Use Never Used 06/25/24 16:21 PHQ-9: PHQ-9 Score PHQ-9: Total score 1 06/27/24 00:36 Depression Screening Interpretation: Negative Thrive Assessment: Date of Thrive Assessment Date Thrive assessed 06/25/24 06/27/24 00:36 Currently or been in a relationship where the following occur: No concerns reported Const Other: Alert oriented x3, no acute distress noted, ambulatory with normal gait HENMT Ears: external ears normal General nose exam: Normal external nose present Face and sinus: Yes face symmetric Mouth: Normal oral and palatal mucosa present, oropharynx normal and moist mucous membranes Eyes General: appearance normal, both eyes and all related structures Neck Neck: Yes full ROM, Yes no lymphadenopathy and Yes supple Resp Effort & Inspection: normal respiratory effort and able to speak in complete sentences Auscultation: diminished lung sounds Cardio Other: S1-S2 present regular rate and rhythm GI Palpation (GI): Soft to palpation and nontender Auscultation: normal bowel sounds Neuro General: gait normal, moves all extremities and no focal motor deficits Extrem General: Yes full ROM, Yes no joint enlargement, Yes no pedal edema and Yes normal gait Results Reviewed Results Reviewed: Name: Elpidio Howard Age/Sex: 74/M [facility] 1950 [id number]#: [id number] Attend Dr: Elida Genao MD Re05/19/24 Status: DEP [facility] SPEC : [id number] VINCE: 05/19/24 STATUS: COMP REQ : [id number] RECD: 05/19/[address]: Elida Genao MD COMP: 05/19/24 ENTERED: 05/19/[address] [facility] DR: ORDERED: Met Prof Fast, AST, ALT, Lipid Panel Test Result Flag Reference Sodium 140 135-145 mmol/L Potassium 4.5 3.3-5.1 mmol/L Slight Hemolysis.Interpret result with caution. CL 105 96-108 mmol/L CO2 29 22-29 mmol/L Gap 11 L 12-20 BUN 20 H 9-16 mg/dL Creat 1.04 0.5-1.4 mg/dL eGFR > 60 Chronic Kidney Disease: Estimated GFR < 60 mL/min/1.73m2 Severe Kidney Disease: Estimated GFR < 15 mL/min/1.73m2 FBS 87 60-99 mg/dL CA 8.9 # 8.4-10.2 mg/dL AST (GOT) 39 H 5-37 U/L Slight Hemolysis.Interpret result with caution. ALT (GPT) 23 0-40 U/L Triglyceride 87 <150 mg/dL Desirable Triglyceride: less than 150 mg/dL Borderline High Triglyceride 150-199 mg/dL High Triglyceride: 200-499 mg/dL Very High Triglyceride: greater than or equal to 5OO mg/dL Cholesterol 134 <200 mg/dL Desirable Cholesterol: less than 200 mg/dL Borderline High Cholesterol: 200-239 mg/dL High Cholesterol: greater than 239 mg/dL LDL Calculated 75 <100 mg/dL Desirable LDL: less than 100 mg/dL Near Optimal/Above Optimal LDL: 110-129 mg/dL Borderline High LDL: 130-159 mg/dL High LDL: 160-189 mg/dL Very High LDL: greater than or equal to 190 mg/dL HDL 42 >40 mg/dL Desirable HDL: greater than 40 mg/dL Note: This HDL assay may give artificially low results in patients with liver disease. Coding Level of Care Code Est Pt Level 4 (05925) Complex EM visit Add On G2211 Diagnoses Adenomatous polyp of colon D12.6 Dyslipidemia E78.5 COPD (chronic obstructive pulmonary disease) J44.9 Primary hypertension I10 Hypertension type: primary hypertension Additional Codes ERASMO-7 Assessment Billing - ERASMO-7 Assessment Tool: ERASMO-7 Assessment 64493 ([id number]) PHQ-9 - 78888 - PHQ-9 Billing: Yes ([id number]) Assessment & Plan Assessment & Plan (1) Adenomatous polyp of colon: Code(s): D12.6 - Benign neoplasm of colon, unspecified Plan: Ordered GI referral for repeat colonoscopy (2) Dyslipidemia: Code(s): E78.5 - Hyperlipidemia, unspecified Category: Medical Plan: Reviewed recent fasting lipid profile with patient with normal lipids . Continue atorvastatin 20 mg daily and [place] 3 fatty acid supplements , in addition to adherence to low-cholesterol diet and regular exercise, at least 30 minutes 3 to 4 times a week. Advised patient to make healthy food choices, eat more fruits, vegetables, whole grains, wild caught fish and low-fat dairy. Limit amount of meat and fried or fatty food products, as well as processed foods and fast foods. Follow-up scheduled with repeat fasting lipid panel in 6 months. (3) COPD (chronic obstructive pulmonary disease): Code(s): J44.9 - Chronic obstructive pulmonary disease, unspecified Category: Medical Plan: Currently on Spiriva Respimat , and continue cutting back on smoking, now down t o 2 cigarettes a day (4) HTN (hypertension): Code(s): I10 - Essential (primary) hypertension Category: Medical Qualifiers: Hypertension type: primary hypertension Qualified Code(s): I10 - Es sential (primary) hypertension Plan: Blood pressure at goal of less than 130/80. Continue amlodipine 2.5 mg daily. Reinforced importance of following a low sodium diet, getting regular exercise, and lowering stress levels. Orders: Orders Alanine Aminotransferase 12/13/24 E78.5 - Hyperlipidemia, unspecified, I10 - Essential (primary) hypertension, J44.9 - Chronic obstructive pulmonary disease, unspecified, Z12.5 - Encounter for screening for malignant neoplasm of prostate Lipid Panel 12/13/24 E78.5 - Hyperlipidemia, unspecified, I10 - Essential (primary) hypertension, J44.9 - Chronic obstructive pulmonary disease, unspecified, Z12.5 - Encounter for screening for malignant neoplasm of prostate PSA,Total (Free>4and<10) 12/13/24 E78.5 - Hyperlipidemia, unspecified, I10 - E ssential (primary) hypertension, J44.9 - Chronic obstructive pulmonary disease, unspecified, Z12.5 - Encounter for screening for malignant neoplasm of prostate Vitamin D 25-OH Total 12/13/24 E78.5 - Hyperlipidemia, unspecified, I10 - Essential (primary) hypertension, J44.9 - Chronic obstructive pulmonary disease, unspecified, Z12.5 - Encounter for screening for malignant neoplasm of prostate Aspartate Amino Transferase 12/13/24 E78.5 - Hyperlipidemia, unspecified, I10 - Essential (primary) hypertension, J44.9 - Chronic obstructive pulmonary disease, unspecified, Z12.5 - Encounter for screening for malignant neoplasm of prostate Basic Metabolic Panel Fasting 12/13/24 E78.5 - Hyperlipidemia, unspecified, I10 - Essential (primary) hypertension, J44.9 - Chronic obstructive pulmonary disease, unspecified, Z12.5 - Encounter for screening for malignant neoplasm of prostate Referrals Gastroenterology Referral D12.6 - Benign neoplasm of colon, unspecified Medications: New Spiriva Respimat 2.5 mcg/actuation (tiotropium bromide) 2 puffs inhalation DAILY 3 months 4 grams 3RF NS Refilled atorvastatin 20 mg PO BEDTIME 90 tabs 3RF amlodipine 2.5 mg PO DAILY 90 tabs 1RF
[2024-06-25 16:17] VITALS: BP 130/80; PULSE 84; RESP 17; TEMP 36.7; O2SAT 94; BMI 18.5
--- OUTSIDE RECORDS SUMMARY | 2024-06-25 19:06 | XMS_ITS | Patient Health Record ---
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 the day before the procedure for 1 day 03/07/2020 Active amLODIPine Besylate 2.5 MG Orally Active Fish Oil 1000 MG 1 capsule Orally Onc e a day Active Aspirin 81 MG 1 tablet Orally Once a day Active Atorvastatin Calcium Active Spiriva Respimat Act alonzo IMMUNIZATIONS Vaccine Route Administration Date Status Comme nts Influenza Unknown 01/20/2020 Administered SOCIAL HISTORY Tobacco Use: Social History Observation Description Date Details (start date - stop date) Current Smoker NA - NA Sex Assigned At : Social History Observation Description Sex Assigned At Unknown Tobacco Use/Smoking Question Answer Notes Patient is a current smoker How often do you smoke cigarettes? every day How many cigarettes a day do you smoke? 6-10 Are you interested in quitting? Thinking about q uitting Alcohol Screen Question Answer Notes Did you have a drink contain ing alcohol in the past year? Yes How often did you have a dri nk containing alcohol in the past year? Monthly or less (1 point) How many drinks did you have on a typical day when you were drinking in the past year? 1 or 2 drinks (0 point) How often did you have 6 or more drinks on one occasion in the past year? Never (0 point) Points 1 Interpretation Negative PROBLEMS Problem Type ICD Code Onset Dates Problem Status W/U Status Risk SNOMED Code Notes Problem Colon cancer screening (Z12.11) Active confirmed [id number] PLAN OF TREATMENT Future Test Test Name Order Date COLONOSCOPY 10/13/2014 COLONOSCOPY 03/07/2020 Insurance Providers Payer Name Payer Address Payer Phone Subscriber Number Group Number Insured Name Patient Relationship to Insured Coverage Start Date Coverage End Date [facility] [address] [place] [address] [id number] ARIELLE ROMEO Self - patient is the insured Medicare of [place] [employer] [address] [place] [address] [id number] ARIELLE ROMEO Self - patient is the insured MEDICAL (GENERAL) HISTORY Medical History History ICD Code colonoscopy 02/09/15 removal of one tubu lar adenoma, five-year followup elevated cholesterol cataracts erectile dysfuntion TIA Surgical History Surgery Date(Month/Year) disc surgery on cervical disc 4- bilateral inguinal hernia repair x3 on t he left and 3 on the right retinal tear status post surgery
== END 2024-06-25 16:54 | disposition home or self-care (01) ==
PROVIDERS: PCP Internal Medicine; Visit Provider Internal Medicine
DX: D12.6 Benign neoplasm of colon, unspecified (principal); E78.5 Hyperlipidemia, unspecified; J44.9 Chronic obstructive pulmonary disease, unspecified; I10 Essential (primary) hypertension

== ENCOUNTER → 2024-06-25 15:47 | Outpatient (BNVA) | payer MEDICARE, SELFPAY | PROVIDERS: PCP Internal Medicine; Visit Provider Internal Medicine | DX: D12.6 Benign neoplasm of colon, unspecified (principal); E78.5 Hyperlipidemia, unspecified; J44.9 Chronic obstructive pulmonary disease, unspecified; I10 Essential (primary) hypertension | CPT/HCPCS: 96127; 99212 ==

== ENCOUNTER 2024-08-24 15:09 | Outpatient (REF) | payer MEDICARE, SELFPAY ==
--- NOTE | ~2024-08-24 | CT_ITS ---
CLINICAL HISTORY: F17.210 - Nicotine dependence, cigarettes, uncomplicated CT lung cancer screening (LDCT) Comparison: CT/UT/SR - CT LUNG SCREENING - 08/23/23 14:07 EDT Technique: Axial CT images of the chest using low-dose technique. Referring provider counseled the patient on shared decision-making for LDCT screening. Additional counseling was provided on smoking cessation. Effective radiation dose total: DLP 29.2 mGycm, CTDIvol 0.8 mGy. Findings: There is moderate centrilobular emphysema. Previously described nodules are unchanged. No new nodules are noted. There is severe coronary artery disease. Large bilateral renal cysts are again noted. Other: None LungRADS 2 - Benign Appearance: Continue annual screening with low dose Chest CT in 12 months. ##L2# Category 1: Normal; continue annual screening Category 2: Benign appearance or behavior, continue annual screening Category 3: Probably benign, [address] recommended Category 4A: Suspicious, [address] recommended; may consider PET/CT Category 4B: Suspicious, Additional diagnostics and/or tissue sampling recommended Category 4X: Suspicious, Additional diagnostics and/or tissue sampling recommended Category 0: Recalls (incomplete screen due to Incomplete coverage, Noise, Respiratory motion, Expiration, Obscured by acute abnormality) This document has been electronically signed by: Tommy Torrez MD on 08/26/2024 13:37:16
== END 2024-08-24 15:10 | disposition home or self-care (01) ==
LOC: HO.CT 15:09
PROVIDERS: PCP Internal Medicine; Visit Provider Physician Assistant Medical
DX: Z12.2 Encounter for screening for malignant neoplasm of respiratory organs (principal); F17.210 Nicotine dependence, cigarettes, uncomplicated
CPT/HCPCS: 71271

== ENCOUNTER → 2024-08-24 15:11 | Outpatient (BNV) | payer MEDICARE, SELFPAY | PROVIDERS: PCP Internal Medicine; Visit Provider Radiology Diagnostic Radiology | DX: F17.210 Nicotine dependence, cigarettes, uncomplicated (principal) | CPT/HCPCS: 71271 ==

== ENCOUNTER 2025-01-04 06:02 | Outpatient (REF) | payer MEDICARE, SELFPAY ==
--- OUTSIDE RECORDS SUMMARY | 2025-01-04 06:07 | XMS_ITS | Patient Health Record ---
Author Organization [facility] Address [address] [place] [address] Care Team Providers Care Crime Scene Specialist Name Role Phone Birgit TODD, Elida Primary Care Provider Daniel Morton Jr Unavailable Reason For Referral Referring Provider First Name Elida Referring Provider Last Name Birgit Referring Provider Speciality Internal M edicine Referred Organization [facility] Referred Provider Daniel Dawson Jr Referred Address [address] [facility],[address],[place], [place],[address], Referred Provider Specialty Gastroentero logy General Notes Ana Reynolds 2024 07:53:49 AM >requested juan alberto referral from [facility] for visit with Dr. Den phillip on 01-25-25 cx z12.11 [phone], Ana Reynolds 12/22/2024 02:19:19 PM > no referral required for juan alberto per Lily at [facility] Referral Priority Routine Medications Medication SIG (Take, Route, Frequency, Duration) Notes [...] Atorvastatin Calcium Active Spiriva Respimat Act alonzo Immunizations Vaccine Route Administration Date Status Comme nts Influenza Unknown 01/20/2020 Administered Social History Tobacco Use: Social History Observation Description Date Details (start date - stop date) Current Smoker NA - NA Tobacco Use/Smoking Question Answer Notes Patient is [...] Never (0 point) Points 1 Interpretation Negative Problems Problem Type SNOMED Code ICD Code Onset Dates Problem Status W/U Status Risk Notes Problem [id number] Colon cancer screening (Z12.11) Active confirmed Plan Of Treatment Future Test Test Name Order Date COLONOSCOPY 10/13/2014 COLONOSCOPY 03/07/2020 Next Appt Details Provider Name:Daniel piedra , 01/25/2025 09:40:00 AM, [address] [place] [address], [address], [place], [address], Insurance Providers Payer Name Payer Address Payer Phone Subscriber Number Group Number Insured Name Patient Relationship to Insured Coverage Start Date Coverage End Date [facility] [address] [place] [address] [id number] ARIELLE ROMEO Self - patient is the insured Medicare of [place] [employer] [address] [place] [address] [id number] ARIELLE ROMEO Self - patient is the insured Medical (General) History Medical History History ICD Code colonoscopy 02/09/15 removal of one tubu lar adenoma, five-year followup elevated cholesterol cataracts erectile dysfuntion TIA Surgical History Surgery Date(Month/Year) disc surgery on cervical disc 4- bilateral inguinal hernia repair x3 on t he left and 3 on the right retinal tear status post surgery
[2025-01-04 14:39] LABS: PSA,Total (Free>4and<10) 0.83 ng/mL (0.00-4.00)
[2025-01-04 15:15] LABS: Alanine Aminotransferase 13 U/L (0-40); Anion Gap 13 (12-20); Aspartate Amino Transferase 29 U/L (5-37); Blood Urea Nitrogen 17 mg/dL (9-16); Calcium 9.2 mg/dL (8.4-10.2); Carbon Dioxide 29 mmol/L (22-29); Chloride 105 mmol/L (96-108); Cholesterol 140 mg/dL (<200); Estimated Glomerular Filt Rate > 60; HDL Cholesterol 40 mg/dL (>40); Potassium 4.3 mmol/L (3.3-5.1); Sodium 143 mmol/L (135-145); Triglycerides 114 mg/dL (<150)
== END 2025-01-04 06:03 | disposition home or self-care (01) ==
LOC: HO.HMGCLDS 06:02
PROVIDERS: PCP Internal Medicine; Visit Provider Internal Medicine
DX: Z12.5 Encounter for screening for malignant neoplasm of prostate (principal); I10 Essential (primary) hypertension; J44.9 Chronic obstructive pulmonary disease, unspecified; E78.5 Hyperlipidemia, unspecified
CPT/HCPCS: 36415; 80048; 80061; 82306; 84153; 84450; 84460

== ENCOUNTER 2025-01-21 14:55 | Outpatient (AMB) | payer MEDICARE, SELFPAY ==
[2025-01-21 15:26] VITALS: BP 140/70; PULSE 88; RESP 17; TEMP 36.9; O2SAT 95; BMI 18.2
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
--- OUTSIDE RECORDS SUMMARY | 2025-01-21 19:15 | XMS_ITS | Patient Health Record ---
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 [facility],[address],[place], [place],[address], Referred Provider Specialty Gastroentero logy General Notes Ana Reynolds 2024 07:53:49 AM >requested juan alberto referral from [facility] for visit with Dr. Den phillip on 01-25-25 cx z12.11 [phone], Ana Reynolds 12/22/2024 02:19:19 PM > no referral required for juan alberto per Lily at [facility] Referral Priority Routine Medications Medication SIG (Take, [...] Problem Status W/U Status Risk Notes Problem [id number] Colon cancer screening (Z12.11) Active confirmed Plan Of Treatment Future Test Test Name Order Date COLONOSCOPY 10/13/2014 COLONOSCOPY 03/07/2020 Next Appt Details Provider Name:Daniel piedra , 01/25/2025 09:40:00 AM, [address] [place] [address], [address], [place], [address], Insurance Providers Payer Name Payer Address Payer Phone Subscriber Number Group Number Insured Name Patient Relationship to Insured Coverage Start Date Coverage End Date [facility] [address] [place] [phone] [id number] ARIELLE ROMEO Self - patient is the insured Medicare of [place] [employer] [address] [place] [address] [id number] ARIELLE ROMEO Self - patient is the [...]
== END 2025-01-21 16:14 | disposition home or self-care (01) ==
LOC: HO.HMCC 14:56
PROVIDERS: PCP Internal Medicine; Visit Provider Internal Medicine
DX: Z00.01 Encounter for general adult medical examination with abnormal findings (principal); L98.9 Disorder of the skin and subcutaneous tissue, unspecified; I10 Essential (primary) hypertension; E78.5 Hyperlipidemia, unspecified; J44.9 Chronic obstructive pulmonary disease, unspecified; Z71.89 Other specified counseling; Z00.00 Encounter for general adult medical examination without abnormal findings

== ENCOUNTER → 2025-01-21 14:55 | Outpatient (BNVA) | payer MEDICARE, SELFPAY | PROVIDERS: PCP Internal Medicine; Visit Provider Internal Medicine | DX: Z00.01 Encounter for general adult medical examination with abnormal findings (principal); L98.9 Disorder of the skin and subcutaneous tissue, unspecified; I10 Essential (primary) hypertension; E78.5 Hyperlipidemia, unspecified; J44.9 Chronic obstructive pulmonary disease, unspecified; Z79.899 Other long term (current) drug therapy; Z71.89 Other specified counseling; Z13.31 Encounter for screening for depression | CPT/HCPCS: 96127; 99397; 99497 ==

== ENCOUNTER 2025-02-16 09:22 | Day surgery (SDC) | payer MEDICARE, SELFPAY ==
--- OUTSIDE RECORDS SUMMARY | 2025-01-25 12:16 | XMS_ITS | Patient Health Record ---
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 Den phillip on 01-25-25 cx z12.11 [phone], Ana Reynolds 12/22/2024 02:19:19 PM > no referral required for juan alberto per Lily at [facility] Referral Priority Routine Medications Medication SIG (Take, Route, Frequency, Duration) Notes Start Date End Date Status Spiriva Respimat Act alonzo Atorvastatin Calcium 40 MG 1 tablet Oral ly Once a day Active Fish Oil 1000 MG 1 capsule Orally Onc e a day Active Aspirin 81 MG 1 tablet Orally Once a day Active amLODIPine Besylate 2.5 MG Orally Active Ibuprofen PRN Active Immunizations Vaccine Route Administration Date Status Comme nts Influenza Unknown 01/20/2020 Administered Influenza Unknown 01/14/2024 Administered Social History Tobacco Use: Social History [...] Problem Status W/U Status Risk Notes Problem [id number] Colon cancer screening (Z12.11) Active confirmed Vital Signs Temperature 97.3 degrees Fahrenheit 01/25/2025 Blood pressure diastolic 01 mm Hg 01/25/2025 Height 69.50 in 01/25/2025 Blood pressure systolic 001 mm Hg 01/25/2025 Weight 120 lbs 01/25/2025 BMI 17.46 kg/m2 01/25/2025 Encounters Encounter Location Date Provider Diagnosis [facility] [address] [place] [address] 01/25/2025 Daniel Dawson Jr Colon cancer screening Z12.11 Assessments Encounter Date Diagnosis (ICD Code) Assessment Notes Treatment Notes Treatment Clinical Notes Section Notes 01/25/2025 Colon cancer screening (ICD-10 - Z12.11) Plan Of Treatment Future Test Test Name Order Date COLONOSCOPY 10/13/2014 COLONOSCOPY 03/07/2020 COLONOSCOPY 01/25/2025 Next Appt Details Provider Name:Daniel piedra Jr, 02/16/2025 12:20:00 PM, [address] [facility] , [place], [place], [phone], Insurance Providers Payer Name Payer Address Payer Phone Subscriber Number Group Number Insured Name Patient Relationship to Insured Coverage Start Date Coverage End Date [facility] [address] [place] [phone] [id number] ARIELLE ROMEO Self - patient is the [place] [address] [place] [address] [id number] ARIELLE ROMEO Self - patient is the insured Medical (General) History Medical History History ICD Code colonoscopy 02/09/15 removal of one tubu lar adenoma, five-year followup elevated cholesterol cataracts erectile dysfuntion TIA Surgical History Surgery Date(Month/Year) retinal tear status post surgery bilateral inguinal hernia repair x3 on t he left and 3 on the right disc surgery on cervical disc 4-
[2025-02-12 11:52] VITALS: BMI 17.5
--- NOTE | 2025-02-15 08:46 | HO.ANESPROP2 ---
Documented by User: Kathy Aaron NP 02/15/25 08:47 HPI - Anesthesia Eval Consult details Narrative: 75yo M for Colonoscopy PMF Active Problems Active Problems: All Active Problems HTN (hypertension) (Acute) Dyslipidemia (Acute) COPD (chronic obstructive pulmonary disease) (Acute) Past Medical History Medical History Nicotine dependence, cigarettes, uncomplicated Tubular adenoma of colon Cramps of left lower extremity Erectile dysfunction Dyslipidemia History of hearing loss History of visual impairment Pulmonary nodule Neck pain Back pain Anxiety and depression TIA (transient ischemic attack) COPD (chronic obstructive pulmonary disease) HTN (hypertension) Surgical History Surgical History History of colonoscopy History of bilateral cataract extraction History of right inguinal hernia repair History of left inguinal hernia repair History of cervical discectomy Social History Social History Housing: Apartment Alcohol intake: current Alcohol intake frequency: holidays/special occasions only Patient Tobacco Use Status: Current everyday Tobacco user Tobacco use type: Cigarette Cigarette Packs Per Day: 0 Cigarettes Per Day: 5 Years Smoked: 59 e-Cigarette/Vaping Use: Never Used Use of substances other than those prescribed or required for medical reasons: No Advance Directives: No Advance Directives Information Provided: Yes service: No Current occupational status: retired Cognitive needs: No Hearing needs: Yes Vision needs: No Meds Allergies Allergy/AdvReac Type Severity Reaction Status Date / Time No Known Allergies (No Known Allergy Verified 01/21/25 15:50 Allergies*) Home Medications ?Medication ?Instructions ?Recorded ?Confirmed ?Last Taken ?Type aspirin 81 mg tablet,delayed 81 mg PO DAILY 03/10/20 02/12/25 03/08/20 History release Held on 03/15/20. Instructions: Resume on 03/22/20. omega-3 fatty acids 1,000 mg 1,000 mg PO DAILY 02/12/25 02/12/25 Unknown History capsule Exam Height,Weight and Vital Signs: Height 5 ft 9.5 in Weight 54.431 kg Assessment and Plan Assessment Anesthesia Assessment: Chart Reviewed Documented by User: Jaz Kim MD 02/16/25 10:40 PMF Past Medical History Medical History Nicotine dependence, cigarettes, uncomplicated Tubular adenoma of colon Cramps of left lower extremity Erectile dysfunction Dyslipidemia History of hearing loss History of visual impairment Pulmonary nodule Neck pain Back pain Anxiety and depression TIA (transient ischemic attack) COPD (chronic obstructive pulmonary disease) HTN (hypertension) Surgical History Surgical History History of colonoscopy History of bilateral cataract extraction History of right inguinal hernia repair History of left inguinal hernia repair History of cervical discectomy History of Problems with Anesthesia: No Social History Social History Housing: Apartment Alcohol intake: current Alcohol intake frequency: holidays/special occasions only Patient Tobacco Use Status: Current everyday Tobacco user Tobacco use type: Cigarette Cigarette Packs Per Day: 0 Cigarettes Per Day: 5 Years Smoked: 59 e-Cigarette/Vaping Use: Never Used Use of substances other than those prescribed or required for medical reasons: No Advance Directives: No Advance Directives Information Provided: Yes service: No Current occupational status: retired Cognitive needs: No Hearing needs: Yes Vision needs: No Meds Allergies Allergy/AdvReac Type Severity Reaction Status Date / Time No Known Allergies (No Known Allergy Verified 01/21/25 15:50 Allergies*) Home Medications ?Medication ?Instructions ?Recorded ?Confirmed ?Last Taken ?Type aspirin 81 mg tablet,delayed 81 mg PO DAILY 03/10/20 02/12/25 03/08/20 History release Held on 03/15/20. Instructions: Resume on 03/22/20. omega-3 fatty acids 1,000 mg 1,000 mg PO DAILY 02/12/25 02/12/25 Unknown History capsule Exam Airway Mallampati Class: II (edentulous) TM Dist: >3cm Neck ROM: Full Loose/Missing/Broken Teeth: Yes, Upper and Lower Heart: RRR Lungs: distant BS, no wheezing Assessment and Plan Assessment Anesthesia Assessment: Anesthesia Plan Discussed Final Anesthetic Review History of Problems with Anesthesia: No NPO: Yes ASA Class: III Final Preanesthetic Review: Meds/Allgs Chart Reviewed, Consent Obtained/Reviewed and Anes Risks/Benef Reviewed Patient Risk: Intermediate Procedure Risk: Low Anesthetic Plan Anesthetic Plan: MAC: Disposition: Standard PACU
[2025-02-16 09:49] VITALS: BMI 16.9
[2025-02-16] MEDS: Lactated Ringers 1,000 ML 100 ML IVCONT (10:01)
[2025-02-16 10:02] VITALS: BP 152/84; PULSE 101; RESP 20; TEMP 36.2; O2SAT 95
[2025-02-16] MEDS: Albuterol Sulfate (0.083%) 2.5 MG/3 ML VIAL.NEB INHALE (10:08)
--- NOTE | 2025-02-16 10:43 | MHC.SHP ---
Pre-Procedural Eval Section A - 24 Hr Update-Section A only Date of Service: 02/16/25 Section B - Complete if H&P > 30 days Chief Complaint: screening Details of Present Illness: see H&P no chNGES Relevant Family History (Specify if Yes): No Relevant Social History: None Present Medications: see Short Stay Collaborative assessment Medical History: No relevant PMH Allergies: Allergies Allergy/AdvReac Type Severity Reaction Status Date / Time No Known Allergies (No Known Allergy Verified 01/21/25 15:50 Allergies*) Review of Systems Sugical H&P ROS: Negative: Constitution, Cardiovascular, Respiratory, Neurological, Psychiatric, Hem-Onc, Allergic/Immunologic, Gastrointestinal, Genitourinary, Musculoskeletal, Integumentary, Endocrine and Eyes/Ears/Nose/Throat Exam Surgical H&P Exam: Normal: HEENT, Normal: Heart, Normal: Lungs, Normal: Extremities, Normal: Abdomen, Normal: Skin and Normal: Neurological Plan Diagnosis/Plan: Unchanged I have reviewed the history and physical and performed a pertinent physical examination on my patient. No changes have occurred unless specified. Time Spent With Patient Time: Total time managing care of this patient today ____ minutes.
[2025-02-16 11:25] VITALS: BP 132/74; PULSE 93; RESP 16; TEMP 36.6; O2SAT 97
[2025-02-16 11:40] VITALS: BP 144/85; PULSE 97; RESP 16; TEMP 36.5; O2SAT 96
--- NOTE | 2025-02-16 13:18 | OP_ITS ---
DATE OF SERVICE: 02/16/2025 SURGEON: Daniel Dawson MD INDICATIONS: Colon cancer screening and prior history of adenomatous colon polyps. PREOPERATIVE DIAGNOSIS: POSTOPERATIVE DIAGNOSIS: PROCEDURE PERFORMED: Colonoscopy to the terminal ileum with snare polypectomy. ESTIMATED BLOOD LOSS: COMPLICATIONS: ANESTHESIA: Monitored anesthesia care. ASSISTANTS: SPECIMENS: DESCRIPTION OF PROCEDURE: A history and physical was performed. The risks and benefits of the procedure were explained to the patient, and informed consent was obtained. The patient was placed in the left lateral decubitus position. A digital rectal exam was performed and was found to be normal. The Olympus pediatric video colonoscope was introduced into the rectum and advanced to the cecum. The cecum was identified by transillumination, palpation, and identification of ileocecal valve. Examination was performed. The scope was removed. He tolerated the procedure well and was returned to the recovery area in stable condition. FINDINGS: The terminal ileum was examined and appeared normal. The visualized colonic mucosa was normal. The quality of the prep was good. In the cecum was a 9 mm polyp, which was removed with a snare and recovered via suction. No other polyps were identified. Retroflexed examination showed moderate-sized internal hemorrhoids. IMPRESSION: Colon polyp. RECOMMENDATION: Follow up the biopsy results. MD MONA Smith/THOMASL / [id number]
== END 2025-02-16 13:40 | disposition home or self-care (01) ==
PROVIDERS: PCP Internal Medicine; Visit Provider Internal Medicine Gastroenterology
PROC: 0DJD8ZZ Inspection of Lower Intestinal Tract, Via Natural or Artificial Opening Endoscopic (ICD-10-PCS; CPT 45378; principal; 2025-02-16 11:40)
DX: Z12.11 Encounter for screening for malignant neoplasm of colon (principal); Z86.0101 Personal history of adenomatous and serrated colon polyps; D12.0 Benign neoplasm of cecum
CPT/HCPCS: 45385; 88305; J2003; J2704